=== PATIENT | female | born 1975 | race Caucasian/White ===

== ENCOUNTER 2017-05-31 16:23 | Inpatient (IN) | payer BC ==
[~2017-05-31] VITALS: Ht 152.4 cm; Wt 72.5 kg
[~2017-05-31 16:23] MED LIST: ALBU1AER9 INH; HYDR-5688 PO; SNG10 PO; TRAZ1TAB5 PO; ZLF/100 PO
[2017-05-31] MEDS ORDERED: ALBU18002 INH (16:38)
[2017-05-31] MEDS ORDERED: CYM/30 PO (16:38)
[2017-05-31 17:05] LABS: BASO % 0.3 %; BASO ABS # 0.03 K/uL (0-0.2); COMPLETE YES; EOS % 1.4 %; HEMATOCRIT 38.7 % (37-47); IG% 0.2 %; LYMPH % 26.7 %; LYMPH ABS # 2.81 K/uL (1.2-3.4); MEAN CELL VOLUME 91.7 fL (80-100); MEAN CORPUSCULAR HEMOGLOBIN 31.3 pg (25-34); MEAN CORPUSCULAR HGB CONC 34.1 g/dl (32-36); MEAN PLATELET VOLUME 9.6 fL (7.4-10.4); MONO % 10.3 %; NEUT % 61.1 %; PLATELET COUNT 235 K/uL (130-400); RED BLOOD COUNT 4.22 M/uL (4.2-5.4); WHITE BLOOD COUNT 10.53 K/uL (4.8-10.8)
[2017-05-31 17:13] LABS: ALT/SGPT 33 U/L (12-78); BLOOD UREA NITROGEN 12 mg/dl (7-18); BUN/CREATININE RATIO 12.8 (10-20); CALCIUM 8.5 mg/dl (8.5-10.1); CARBON DIOXIDE 27 mmol/L (21-32); CHLORIDE 108 mmol/L (98-107); GLUCOSE 90 mg/dl (70-99); POTASSIUM 3.7 mmol/L (3.5-5.1); SODIUM 141 mmol/L (136-145)
[2017-05-31 17:18] LABS: ALKALINE PHOSPHATASE 79 U/L (45-117); AST/SGOT 21 U/L (15-37)
[2017-05-31 17:25] LABS: PREG INTERNAL NEGATIVE QC NEG CLEAR BACKGROUND; PREG INTERNAL POSITIVE QC POS CONTROL LINE
[2017-05-31] MEDS ORDERED: OPTIRAY 320 IV PRN (17:45)
[2017-05-31] MEDS ORDERED: ALUMINUM/MAGNESIUM SUSP 30 ML UDC PO STA (17:51)
[2017-05-31] MEDS ORDERED: PANTOprazole INJ 40 MG in SYRINGE 0 ML IV ONE (18:00)
--- NOTE | 2017-05-31 18:03 | DIAGNOSTIC IMAGING REPORT ---
CHEST ONE VIEW PORTABLE CLINICAL HISTORY: Chest pain. COMPARISON STUDY: Chest radiograph April. FINDINGS: Lung volumes are normal. There is no pneumothorax. There is a trace left pleural effusion with mild left basilar opacity. Cardiac size is normal. Mediastinal contours are normal. There is no evidence of pulmonary edema. IMPRESSION: Trace left pleural effusion with mild left basilar opacity. Electronically signed by: Kenrick Roe M.D. 05/31/2017 6:02 PM Dictated Date/Time: 05/31/2017 5:59 PM
--- NOTE | 2017-05-31 18:28 | DIAGNOSTIC IMAGING REPORT ---
CT ANGIOGRAPHY OF THE CHEST, PULMONARY EMBOLUS PROTOCOL CLINICAL HISTORY: Left-sided chest pain. Elevated d-dimer. COMPARISON STUDY: Chest radiograph November 29, 2014 and May 31, 2017. TECHNIQUE: Following IV administration of 77 mL of Optiray-320, helical axial images of the chest were obtained utilizing the pulmonary embolus protocol. Maximal intensity projections and sagittal and coronal reformats were viewed on an independent 3D workstation. IV contrast was administered without complication. A dose lowering technique was utilized adhering to the principles of ALARA. CT DOSE: 267.09 mGy.cm FINDINGS: The size of the heart is normal. There is no pericardial effusion. There is no evidence of thoracic aortic dissection. A small left pleural effusion is noted. There is a 2.7 cm groundglass wedge-shaped lingular opacity shown on image 59 of 243. This suggests a pulmonary infarct. There is a probable subsegmental pulmonary embolus within an adjacent pulmonary artery shown image 65 of 243. No additional pulmonary emboli are identified. The bony thorax and upper abdomen are unremarkable. The gallbladder is surgically absent. Note is made of a 2.5 cm nodular density within the right breast at the 1:00 position. IMPRESSION: 1. Probable tiny subsegmental pulmonary embolus within the lingula with resultant pulmonary infarct and small left pleural effusion. No additional pulmonary emboli identified. 2. 2.5 cm nodular density within the right breast at approximately the 1:00 position. A follow-up nonemergent ultrasound and mammogram are recommended. This may reflect a fibroadenoma or breast tissue however imaging follow-up is recommended. Electronically signed by: Kenrick Roe M.D. 05/31/2017 6:27 PM Dictated Date/Time: 05/31/2017 6:12 PM
[2017-05-31] MEDS ORDERED: MoRPHine SULFATE 4 MG/ML 1 ML CARP\\VIAL IV STA (18:52)
[2017-05-31] MEDS ORDERED: HEPARIN 25000 UNIT/500 ML D5W ONE (19:12)
[2017-05-31] MEDS ORDERED: HEPARIN SOD (PORCINE) 1000 UNIT/ML 10 ML VIAL ONE (19:13)
[2017-05-31 19:47] LABS: PROTHROMBIN TIME (PATIENT) 10.5 SECONDS (9.0-12.0)
[2017-05-31] MEDS ORDERED: ONDANSETRON INJ 2 MG/ML 2 ML VIAL IV PRN (20:00)
[2017-05-31] MEDS ORDERED: MONTELUKAST SOD 10 MG TAB PO PRN (20:00)
[2017-05-31] MEDS ORDERED: LACTATED RINGER'S 1000ML 1,000 ML IV ONE (20:00)
[2017-05-31] MEDS ORDERED: TRAMADOL HCL 50 MG TAB PO PRN (20:00)
[2017-05-31] MEDS ORDERED: LORAZEPAM 2 MG/ML 1 ML VIAL IV PRN (20:00)
[2017-05-31] MEDS ORDERED: ACETAMINOPHEN 325 MG TAB PO PRN (20:00)
[2017-05-31 20:30] VITALS: BP 137/102; PULSE 92; TEMP 36.8; O2SAT 96; Ht 152.4 cm; Wt 72.5 kg
[2017-05-31] MEDS ORDERED: HEPARIN IV LOW DOSE NO BOLUS STA (21:04)
[2017-05-31] MEDS: TRAZODONE HCL 50 MG TAB PO SCH (21:10)
--- NOTE | 2017-05-31 22:19 | DIAGNOSTIC IMAGING REPORT ---
BILATERAL LOWER EXTREMITY VENOUS DOPPLER CLINICAL HISTORY: Pulmonary emboli. COMPARISON STUDY: Bilateral lower extremity venous Doppler November 29, 2014. TECHNIQUE: Sonography of the deep venous system of the bilateral lower extremities was performed. Compression and augmentation were evaluated. FINDINGS: The bilateral common femoral, superficial femoral and popliteal veins were compressible. Augmentation was normal. Flow was shown within the deep calf vessels. IMPRESSION: No evidence of deep venous thrombus within the bilateral lower extremities. Electronically signed by: Kenrick Roe M.D. 05/31/2017 10:18 PM Dictated Date/Time: 05/31/2017 10:17 PM
[2017-05-31] MEDS: MoRPHine SULFATE 4 MG/ML 1 ML CARP\\VIAL IV PRN (22:36)
[2017-05-31 23:59] VITALS: O2SAT 96
[2017-06-01] VITALS (8 sets, daily range): BP systolic 97–126; BP diastolic 68–87; PULSE 80–104; TEMP 36.6–36.8; O2SAT 95–98
--- NOTE | 2017-06-01 00:02 | HISTORY & PHYSICAL EXAMINATION ---
DATE OF ADMISSION: 05/31/2017 PRIMARY CARE PHYSICIAN: Dr. Flores. CHIEF COMPLAINT: Pleuritic left-sided chest pain. HISTORY OF PRESENT ILLNESS: History obtained from patient and records. Medical history significant for asthma, reflux, breast nodule as per records. Last night, patient noted pleuritic left-sided chest pain going to her neck, some shortness of breath, no cough symptoms. No leg swelling, no recent immobilization, no recent travel. No unusual weight loss. At the emergency room, CT chest showed probable tiny subsegmental pulmonary embolus within the lingula with resultant pulmonary infarct and small left pleural effusion, 2.5 cm nodular density within right breast at 1 o'clock. Follow up nonemergent ultrasound recommended. IV heparin started in the ER. MEDICAL HISTORY: As above. Outpatient breast ultrasound from March 2017 showed heterogeneously dense left breast, 6 mm nodular density at 8 o'clock, clustered micro cyst - probably benign, Followup mammogram and sonogram recommended in 6 months. SURGERIES: Urologic procedures, gynecologic procedures, cholecystectomy and dental surgery. HOME MEDICATIONS: Include ProAir, Cymbalta, montelukast, Desyrel. ALLERGIES: No known drug allergies. FAMILY HISTORY:breast cancer, no family history of blood clots PERSONAL AND SOCIAL HISTORY: Nonsmoker, no chronic intake of alcoholic beverages. [employer] employee. REVIEW OF SYSTEMS: As per HPI, all other ROS negative. PHYSICAL EXAMINATION: VITAL SIGNS: Blood pressure was noted to be 121/80, pulse rate 80, RR 18, temperature 36.6, sats 98RA GENERAL: Noted to be anxious, obese, no respiratory distress SKIN: Normal color. HEENT: [place] palpable conjunctivae. moist buccal mucosa. NECK: Short neck. LUNGS: Decreased breath sounds. HEART: Regular rate and rhythm. ABDOMEN: Soft. EXTREMITIES: Minimal lower extremity edema, no tenderness. NEUROLOGIC: No gross focality. LABORATORY AND IMAGING DATA: Hemoglobin 13, white cell count 10.5, platelets are 235. Sodium 140, potassium 3.7, chloride 105, CO2 22, BUN 12, creatinine 1, glucose 100. Troponin normal. CT chest as above. EKG as per my interpretation, rate 90, normal sinus rhythm, no ischemia. ASSESSMENT: 1. Acute pulmonary embolism, No obvious provoking factor for now. 2. Rule out lower extremity deep venous thrombosis as source. 3. Asthma, stable. 4. Breast nodule on the left likely benign from recent outpx ultrasound PLAN: PCU IV heparin for now. Defer discussion regarding choice of oral anticoagulant between the patient and AM provider. Lower extremity Dopplers to rule out DVT. Followup study for breast ultrasound outpatient before acr-dy-end-year. DVT prophylaxis, heparin. Full code. MTDD
[2017-06-01 05:10] LABS: BASO % 0.2 %; BASO ABS # 0.02 K/uL (0-0.2); COMPLETE YES; EOS % 2.2 %; HEMATOCRIT 38.1 % (37-47); IG% 0.1 %; LYMPH % 31.7 %; LYMPH ABS # 2.57 K/uL (1.2-3.4); MEAN CELL VOLUME 91.6 fL (80-100); MEAN CORPUSCULAR HEMOGLOBIN 30.5 pg (25-34); MEAN CORPUSCULAR HGB CONC 33.3 g/dl (32-36); MEAN PLATELET VOLUME 9.7 fL (7.4-10.4); MONO % 9.7 %; NEUT % 56.1 %; PLATELET COUNT 188 K/uL (130-400); RED BLOOD COUNT 4.16 M/uL (4.2-5.4); WHITE BLOOD COUNT 8.11 K/uL (4.8-10.8)
[2017-06-01 05:24] LABS: PARTIAL THROMBOPLASTIN RATIO 1.8
[2017-06-01] MEDS ORDERED: HEPARIN IV BOLUS 2,000 UNIT in SYRINGE 0 ML IV ONE (06:30)
[2017-06-01] MEDS: HEPARIN 25000 UNIT/ D5W 500 ML (PHARMACY PREPARED) IV PRN ×2 (06:32)
[2017-06-01] MEDS: DULOXETINE (CYMBALTA) 30 MG CAP PO SCH (07:40)
[2017-06-01] MEDS ORDERED: COUGH DROP (SUGAR FREE) LOZ 24 LOZ/1 BOX ONE (07:43)
[2017-06-01] MEDS ORDERED: PNEUMOCOCCAL ADMINISTRATION CHARGE ONE (08:00)
[2017-06-01] MEDS ORDERED: PNEUMOCOCCAL POLYSACCHARIDES 25 MCG/0.5 ML VIAL/SYR IM. ONE (08:00)
--- NOTE | 2017-06-01 09:03 | Progress Note ---
Subjective Date of Service: Jun 01, 2017. Subjective Pt evaluation today including: conversation w/ patient, physical exam, lab review, review of studies, review of inpatient medication list Saw/examined the patient in room 202 patient is doing okay - states that her breathing is fine does have occasional cough and develops some chest pressure after cough Review of Systems Constitutional: No fever, No chills Respiratory: + cough, No sputum, No wheezing, No shortness of breath, No dyspnea on exertion, No dyspnea at rest, No hemoptysis Cardiac: + chest pain (post-tussive pain), No edema, No palpitations Abdomen: No pain, No nausea, No vomiting, No diarrhea Musculoskeletal: No joint pain Female : No dysuria, No urinary frequency Psychiatric: No depression symptoms (controlled with medications) Heme: No abnormal bleeding/bruising Medications Current Inpatient Medications Medications (Trade) Dose Ordered Sig/Jerome Route Start Time Stop Time Status Last Admin Dose Admin Ioversol (Optiray 320) 100 ml UD PRN IV 05/31/17 17:45 06/04/17 17:44 Acetaminophen (Tylenol Tab) 650 mg Q4H PRN PO 05/31/17 20:00 06/30/17 19:59 06/01/17 06:35 650 MG Lactated Ringer's 1,000 ml @ 75 mls/hr [id number] ONCE IV 05/31/17 20:00 06/01/17 09:19 05/31/17 21:09 75 MLS/HR Tramadol HCl (Ultram Tab) not relieved by tylenol @ Q6H PRN PO 05/31/17 20:00 06/30/17 19:59 Morphine Sulfate (MoRPHine SULFATE INJ) 4 mg Q3H PRN IV 05/31/17 20:00 06/14/17 19:59 05/31/17 22:36 4 MG Lorazepam (Ativan Inj) 0.5 mg Q4H PRN IV 05/31/17 20:00 06/30/17 19:59 Ondansetron HCl (Zofran Inj) 4 mg Q6H PRN IV 05/31/17 20:00 06/30/17 19:59 Duloxetine HCl (Cymbalta Cap) 30 mg DAILY PO 06/01/17 09:00 07/01/17 08:59 06/01/17 07:40 30 MG Montelukast Sodium (Singulair Tab) 10 mg DAILY PRN PO 05/31/17 20:00 06/30/17 19:59 Trazodone HCl (Desyrel Tab) 50 mg HS PO 05/31/17 21:00 06/30/17 20:59 05/31/17 21:10 50 MG Heparin Sodium (Porcine) 01322 unit/Dextrose 500 ml @ 14 mls/hr Q24H PRN IV 05/31/17 22:00 06/30/17 21:59 06/01/17 06:32 14 MLS/HR Objective Vital Signs Date Time Temp Pulse Resp B/P (MAP) Pulse Ox O2 Delivery O2 Flow Rate FiO2 06/01/17 04:06 36.8 80 17 97/71 (80) 98 Room Air 06/01/17 04:00 96 Room Air 06/01/17 00:02 36.7 88 16 106/68 (81) 97 Room Air 05/31/17 23:59 96 Room Air 05/31/17 20:30 36.8 92 18 137/102 96 Room Air 05/31/17 19:53 82 135/93 96 Room Air 05/31/17 18:12 80 20 128/83 98 Room Air 05/31/17 17:35 83 18 121/80 96 Room Air 05/31/17 16:58 Room Air 05/31/17 16:39 94 05/31/17 16:35 Room Air 05/31/17 16:25 37.2 96 16 126/83 97 Room Air Physical Exam General Appearance: no apparent distress Respiratory/Chest: chest non-tender, lungs clear, normal breath sounds, no respiratory distress, no accessory muscle use Cardiovascular: regular rate, rhythm, no edema, no murmur Abdomen: normal bowel sounds, non tender, soft Extremities: normal range of motion, non-tender, normal inspection, no pedal edema, no calf tenderness Neurologic/Psychiatric: 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-XII 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 tested, no motor/sensory deficits, alert, normal mood/affect, oriented x 3 Skin: normal color Lymphatic: no adenopathy Laboratory Results Last 24 Hours Test 05/31/17 16:40 06/01/17 04:51 06/01/17 08:11 White Blood Count 10.53 K/uL 8.11 K/uL Red Blood Count 4.22 M/uL 4.16 M/uL Hemoglobin 13.2 g/dL 12.7 g/dL Hematocrit 38.7 % 38.1 % Mean Corpuscular Volume 91.7 fL 91.6 fL Mean Corpuscular Hemoglobin 31.3 pg 30.5 pg Mean Corpuscular Hemoglobin Concent 34.1 g/dl 33.3 g/dl Platelet Count 235 K/uL 188 K/uL Mean Platelet Volume 9.6 fL 9.7 fL Neutrophils (%) (Auto) 61.1 % 56.1 % Lymphocytes (%) (Auto) 26.7 % 31.7 % Monocytes (%) (Auto) 10.3 % 9.7 % Eosinophils (%) (Auto) 1.4 % 2.2 % Basophils (%) (Auto) 0.3 % 0.2 % Neutrophils # (Auto) 6.44 K/uL 4.54 K/uL Lymphocytes # (Auto) 2.81 K/uL 2.57 K/uL Monocytes # (Auto) 1.08 K/uL 0.79 K/uL Eosinophils # (Auto) 0.15 K/uL 0.18 K/uL Basophils # (Auto) 0.03 K/uL 0.02 K/uL RDW Standard Deviation 42.8 fL 43.1 fL RDW Coefficient of Variation 12.7 % 12.8 % Immature Granulocyte % (Auto) 0.2 % 0.1 % Immature Granulocyte # (Auto) 0.02 K/uL 0.01 K/uL Prothrombin Time 10.5 SECONDS Prothromb Time International Ratio 1.0 Activated Partial Thromboplast Time 25.0 SECONDS 45.9 SECONDS Partial Thromboplastin Ratio 1.0 1.8 D-Dimer 550 ug/L FEU Sodium Level 141 mmol/L Potassium Level 3.7 mmol/L Chloride Level 108 mmol/L Carbon Dioxide Level 27 mmol/L Anion Gap 6.0 mmol/L Blood Urea Nitrogen 12 mg/dl Creatinine 0.90 mg/dl Est Creatinine Clear Calc Drug Dose 73.1 ml/min Estimated GFR () 92.0 Estimated GFR (Non- 79.4 BUN/Creatinine Ratio 12.8 Random Glucose 90 mg/dl Calcium Level 8.5 mg/dl Magnesium Level 2.2 mg/dl Total Bilirubin 0.2 mg/dl Aspartate Amino Transf (AST/SGOT) 21 U/L Alanine Aminotransferase (ALT/SGPT) 33 U/L Alkaline Phosphatase 79 U/L Troponin I < 0.015 ng/ml < 0.015 ng/ml Total Protein 7.0 gm/dl Albumin 3.5 gm/dl Globulin 3.5 gm/dl Albumin/Globulin Ratio 1.0 Human Chorionic Gonadotropin, Qual NEG Assessment and Plan This is a 42 year old female with a PMH of asthma, allergic rhinitis, GERD, depression/anxiety presents with L sided chest pain, subsequently found to have PE Subsegmental PE CTA shows tiny subsegmental PE at Lingula also a 2.5cm nodular density of the R breast started on IV heparin hypercoag w/up ordered and pending lower extremity Doppler negative CM consulted to discuss cost of Xarelto as patient is leaning towards NOAC Asthma continue home medications no SOB noted DVT ppx IV heparin; see above FULL CODE
[2017-06-01] MEDS: MoRPHine SULFATE 4 MG/ML 1 ML CARP\\VIAL IV PRN ×3 (09:25→17:37)
[2017-06-01 13:21] LABS: PARTIAL THROMBOPLASTIN RATIO 1.6
[2017-06-01] MEDS ORDERED: RIVA1TAB7 PO (13:24)
[2017-06-01] MEDS ORDERED: HEPARIN IV BOLUS 4,000 UNIT in SYRINGE 0 ML IV ONE (14:15)
[2017-06-01 20:08] LABS: PARTIAL THROMBOPLASTIN RATIO 2.3
[2017-06-01] MEDS: TRAZODONE HCL 50 MG TAB PO SCH (20:45)
[2017-06-02 03:56] VITALS: BP 112/74; PULSE 79; TEMP 36.7; O2SAT 97
[2017-06-02] MEDS: HEPARIN 25000 UNIT/ D5W 500 ML (PHARMACY PREPARED) IV PRN ×2 (05:45)
[2017-06-02 06:08] LABS: BASO % 0.4 %; BASO ABS # 0.03 K/uL (0-0.2); COMPLETE YES; EOS % 2.2 %; HEMATOCRIT 36.6 % (37-47); IG% 0.1 %; LYMPH % 29.1 %; LYMPH ABS # 2.29 K/uL (1.2-3.4); MEAN CORPUSCULAR HEMOGLOBIN 30.8 pg (25-34); MEAN CORPUSCULAR HGB CONC 33.9 g/dl (32-36); MEAN PLATELET VOLUME 9.5 fL (7.4-10.4); MONO % 8.5 %; NEUT % 59.7 %; PLATELET COUNT 202 K/uL (130-400); RED BLOOD COUNT 4.02 M/uL (4.2-5.4); WHITE BLOOD COUNT 7.86 K/uL (4.8-10.8)
[2017-06-02 08:00] VITALS: BP 115/74; PULSE 57; TEMP 36.5; O2SAT 96
[2017-06-02] MEDS: DULOXETINE (CYMBALTA) 30 MG CAP PO SCH (08:42)
[2017-06-02] MEDS ORDERED: RIVAROXABAN TAB 15 MG TAB PO SCH (09:00)
--- NOTE | 2017-06-02 09:31 | Progress Note ---
Subjective Date of Service: Jun 02, 2017. Subjective Pt evaluation today including: conversation w/ patient, physical exam, lab review, review of studies, review of inpatient medication list Saw/examined the patient in room 202 She is doing well, no shortness of breath or chest pain, no cough, feeling better, eager to go home Review of Systems Constitutional: No fever, No chills, No weakness Respiratory: No cough, No sputum, No wheezing, No shortness of breath, No dyspnea on exertion, No dyspnea at rest, No hemoptysis Cardiac: No chest pain (improved), No edema, No palpitations Abdomen: No pain, No nausea, No vomiting, No diarrhea Heme: No abnormal bleeding/bruising Medications Current Inpatient Medications Medications (Trade) Dose Ordered Sig/Jerome Route Start Time Stop Time Status Last Admin Dose Admin Ioversol (Optiray 320) 100 ml UD PRN IV 05/31/17 17:45 06/04/17 17:44 Acetaminophen (Tylenol Tab) 650 mg Q4H PRN PO 05/31/17 20:00 06/30/17 19:59 06/01/17 06:35 650 MG Tramadol HCl (Ultram Tab) not relieved by tylenol @ Q6H PRN PO 05/31/17 20:00 06/30/17 19:59 Morphine Sulfate (MoRPHine SULFATE INJ) 4 mg Q3H PRN IV 05/31/17 20:00 06/14/17 19:59 06/01/17 17:37 4 MG Lorazepam (Ativan Inj) 0.5 mg Q4H PRN IV 05/31/17 20:00 06/30/17 19:59 Ondansetron HCl (Zofran Inj) 4 mg Q6H PRN IV 05/31/17 20:00 06/30/17 19:59 Duloxetine HCl (Cymbalta Cap) 30 mg DAILY PO 06/01/17 09:00 07/01/17 08:59 06/02/17 08:42 30 MG Montelukast Sodium (Singulair Tab) 10 mg DAILY PRN PO 05/31/17 20:00 06/30/17 19:59 Trazodone HCl (Desyrel Tab) 50 mg HS PO 05/31/17 21:00 06/30/17 20:59 06/01/17 20:45 50 MG Rivaroxaban (Xarelto Tab) 15 mg BID PO 06/02/17 09:00 07/02/17 08:59 06/02/17 08:42 15 MG Objective Vital Signs Date Time Temp Pulse Resp B/P (MAP) Pulse Ox O2 Delivery O2 Flow Rate FiO2 06/02/17 08:00 36.5 57 22 115/74 (88) 96 Room Air 06/02/17 04:00 Room Air 06/02/17 03:56 36.7 79 16 112/74 (87) 97 Room Air 06/02/17 00:00 Room Air 06/01/17 23:58 36.7 80 17 115/76 (89) 96 Room Air 06/01/17 20:04 36.6 81 18 120/69 (86) 96 Room Air 06/01/17 20:00 Room Air 06/01/17 16:00 Room Air 06/01/17 15:10 36.8 104 20 126/87 (100) 95 Room Air 06/01/17 12:00 Room Air 06/01/17 11:17 36.8 89 20 125/80 (95) 97 Room Air Physical Exam General Appearance: no apparent distress Respiratory/Chest: chest non-tender, lungs clear, normal breath sounds, no respiratory distress, no accessory muscle use Cardiovascular: regular rate, rhythm, no edema, no gallop, no JVD, no murmur Extremities: normal inspection, no pedal edema Neurologic/Psychiatric: no motor/sensory deficits, alert, normal mood/affect Laboratory Results Last 24 Hours Test 06/01/17 12:55 06/01/17 19:24 06/02/17 05:13 Activated Partial Thromboplast Time 40.4 SECONDS 59.7 SECONDS Partial Thromboplastin Ratio 1.6 2.3 White Blood Count 7.86 K/uL Red Blood Count 4.02 M/uL Hemoglobin 12.4 g/dL Hematocrit 36.6 % Mean Corpuscular Volume 91.0 fL Mean Corpuscular Hemoglobin 30.8 pg Mean Corpuscular Hemoglobin Concent 33.9 g/dl Platelet Count 202 K/uL Mean Platelet Volume 9.5 fL Neutrophils (%) (Auto) 59.7 % Lymphocytes (%) (Auto) 29.1 % Monocytes (%) (Auto) 8.5 % Eosinophils (%) (Auto) 2.2 % Basophils (%) (Auto) 0.4 % Neutrophils # (Auto) 4.69 K/uL Lymphocytes # (Auto) 2.29 K/uL Monocytes # (Auto) 0.67 K/uL Eosinophils # (Auto) 0.17 K/uL Basophils # (Auto) 0.03 K/uL RDW Standard Deviation 42.3 fL RDW Coefficient of Variation 12.6 % Immature Granulocyte % (Auto) 0.1 % Immature Granulocyte # (Auto) 0.01 K/uL Assessment and Plan This is a 42 year old female with a PMH of asthma, allergic rhinitis, GERD, depression/anxiety presents with L sided chest pain, subsequently found to have PE Subsegmental PE 06/02 patient is feeling well will stop IV heparin start Xarelto CM spoke with the pharmacy and patient, pt agreeable with cost 06/01 CTA shows tiny subsegmental PE at Lingula also a 2.5cm nodular density of the R breast started on IV heparin hypercoag w/up ordered and pending lower extremity Doppler negative CM consulted to discuss cost of Xarelto as patient is leaning towards NOAC Asthma continue home medications no SOB noted DVT ppx IV heparin; see above FULL CODE
--- NOTE | 2017-06-02 09:32 | Discharge Instructions ---
Discharge Instructions Date of Service Jun 02, 2017. Admission Reason for Admission: Pulmonary Embolism Discharge Discharge Diagnosis / Problem: Acute Subsegmental PE Discharge Goals Goal(s): Decrease discomfort, Improve function, Diagnostic testing, Therapeutic intervention Activity Recommendations Activity Limitations: resume your previous activity . Instructions / Follow-Up Instructions / Follow-Up Please follow-up with Dr. Flores on June 06 at 1:00PM * You will be started on Xarelto - you will be taking 15mg twice daily for the first 21 days, then take 20mg daily * Lab work pending in the hospital, can be followed up with by primary care physician * You will likely need to be on Xarelto for 3-6 months Current Hospital Diet Patient's current hospital diet: Regular Diet Discharge Diet Recommended Diet: Regular Diet Pending Studies Studies pending at discharge: yes List of pending studies: Hypercoag. workup pending Medical Emergencies . Who to Call and When: Medical Emergencies: If at any time you feel your situation is an emergency, please call 911 immediately. . Non-Emergent Contact Non-Emergency issues call your: Primary Care Provider . . "Provider Documentation" section prepared by Roel Cheung. . VTE Core Measure Inpt VTE Proph given/why not?: Other Anticoagulation (IV heparin)
--- NOTE | 2017-06-02 09:34 | Discharge Summary ---
Discharge Summary Date of Service Jun 02, 2017. Discharge Summary Admission Date: May 31, 2017 at 19:27 Discharge Date: Jun 02, 2017 Discharge Disposition: Home Principal Diagnosis: Acute Subsegmental PE of the Lingula Medication Reconciliation New Medications: Rivaroxaban (Xarelto Starter Pack 15 & 20 mg) 1 Tab Tab 1 PKT PO UD for 30 Days, #1 PKT Continued Medications: Albuterol Sulfate (Proair Respiclick) 108 Mcg/Act Aer 2 PUFFS INH DIRECTED PRN for ASTHMA ATTACK Duloxetine HCl (Cymbalta) 30 Mg Cap 30 MG PO DAILY for 30 Days, #30 CAP 2 Refills Montelukast Sod (Montelukast Sodium) 10 Mg Tab 10 MG PO DAILY PRN for ALLERGIC REACTION, #90 Trazodone Hcl (Desyrel) 50 Mg Tab 50 MG PO HS, #180 Admission Information Physical Exam (per Admitting): DICTATED BY: Nicho Mckeon M.D. *NOTICE TO RECEIVING CONSTITUTION PARTY/AGENCY This information is strictly Confidential and protected under [place] law. [place] law prohibits you from making any further disclosure of this information unless further disclosure is expressly permitted by the written consent of the person to whom it pertains or is authorized by law. A general authorization for the release of medical or other information is not sufficient for this purpose. Hospital accepts no responsibility if the information is made available to any other person, INCLUDING THE PATIENT. DATE OF ADMISSION: 05/31/2017 PRIMARY CARE PHYSICIAN: Dr. Flores. CHIEF COMPLAINT: Pleuritic left-sided chest pain. HISTORY OF PRESENT ILLNESS: History obtained from patient and records. Medical history significant for asthma, reflux, breast nodule as per records. Last night, patient noted pleuritic left-sided chest pain going to her neck, some shortness of breath, no cough symptoms. No leg swelling, no recent immobilization, no recent travel. No unusual weight loss. At the emergency room, CT chest showed probable tiny subsegmental pulmonary embolus within the lingula with resultant pulmonary infarct and small left pleural effusion, 2.5 cm nodular density within right breast at 1 o'clock. Follow up nonemergent ultrasound recommended. IV heparin started in the ER. MEDICAL HISTORY: As above. Outpatient breast ultrasound from March 2017 showed heterogeneously dense left breast, 6 mm nodular density at 8 o'clock, clustered micro cyst - probably benign, Followup mammogram and sonogram recommended in 6 months. SURGERIES: Urologic procedures, gynecologic procedures, cholecystectomy and dental surgery. HOME MEDICATIONS: Include ProAir, Cymbalta, montelukast, Desyrel. ALLERGIES: No known drug allergies. FAMILY HISTORY:breast cancer, no family history of blood clots PERSONAL AND SOCIAL HISTORY: Nonsmoker, no chronic intake of alcoholic beverages. [employer] employee. REVIEW OF SYSTEMS: As per HPI, all other ROS negative. PHYSICAL EXAMINATION: VITAL SIGNS: Blood pressure was noted to be 121/80, pulse rate 80, RR 18, temperature 36.6, sats 98RA GENERAL: Noted to be anxious, obese, no respiratory distress SKIN: Normal color. HEENT: [place] palpable conjunctivae. moist buccal mucosa. NECK: Short neck. LUNGS: Decreased breath sounds. HEART: Regular rate and rhythm. ABDOMEN: Soft. EXTREMITIES: Minimal lower extremity edema, no tenderness. NEUROLOGIC: No gross focality. LABORATORY AND IMAGING DATA: Hemoglobin 13, white cell count 10.5, platelets are 235. Sodium 140, potassium 3.7, chloride 105, CO2 22, BUN 12, creatinine 1, glucose 100. Troponin normal. CT chest as above. EKG as per my interpretation, rate 90, normal sinus rhythm, no ischemia. ASSESSMENT: 1. Acute pulmonary embolism, No obvious provoking factor for now. 2. Rule out lower extremity deep venous thrombosis as source. 3. Asthma, stable. 4. Breast nodule on the left likely benign from recent outpx ultrasound PLAN: PCU IV heparin for now. Defer discussion regarding choice of oral anticoagulant between the patient and AM provider. Lower extremity Dopplers to rule out DVT. Followup study for breast ultrasound outpatient before [id number]. DVT prophylaxis, heparin. Full code. Hospital Course This is a 42 year old female with a PMH of asthma, allergic rhinitis, GERD, depression/anxiety presents with L sided chest pain, subsequently found to have PE Subsegmental PE 06/02 patient is feeling well will stop IV heparin start Xarelto CM spoke with the pharmacy and patient, pt agreeable with cost 06/01 CTA shows tiny subsegmental PE at Lingula also a 2.5cm nodular density of the R breast started on IV heparin hypercoag w/up ordered and pending lower extremity Doppler negative CM consulted to discuss cost of Xarelto as patient is leaning towards NOAC Asthma continue home medications no SOB noted DVT ppx IV heparin; see above FULL CODE Total time spent on discharge = 40 minutes This includes examination of the patient, discharge planning, medication reconciliation, and communication with other providers. Discharge Instructions Please follow-up with Dr. Flores on June 06 at 1:00PM * You will be started on Xarelto - you will be taking 15mg twice daily for the first 21 days, then take 20mg daily * Lab work pending in the hospital, can be followed up with by primary care physician * You will likely need to be on Xarelto for 3-6 months Additional Copies To Reji Flores M.D.
[2017-06-02 11:08] VITALS: BP 120/85; PULSE 88; TEMP 36.8; O2SAT 97
[2017-06-05 13:51] LABS: B2 GLYCOPROTEIN IGA <9 SAU (<=20); B2 GLYCOPROTEIN IGG <9 SGU (<=20); B2 GLYCOPROTEIN IGM <9 SMU (<=20); LUPUS ANTICOAGULANT** TC36573X Negative (Negative); PROTEIN C ACTIVITY** TC 1777X 86 % (70-180); PROTEIN S ACT(FUNCT)**1779X 87 % (60-140)
--- NOTE | 2017-06-11 18:22 | EMERGENCY ROOM VISIT NOTE ---
History Report prepared by Madelaine: Christiana Crandall Under the Supervision of: Dr. Loreto Leone D.O. First contact with patient: 16:29 Chief Complaint: CHEST PAIN Stated Complaint: LF SIDE PAIN UNDER BREAST/CHEST/NECK/SHOULDER History of Present Illness The patient is a 42 year old female who presents to the Emergency Room with complaints of constant severe chest pain starting last night. The patient states that the pain is under her left breast and shoots into her shoulder and neck. She reports that there is a pain in her arm that is a burning sensation. She states that deep breaths worsen the pain. The patient notes that she was kept up last night from the pain. She denies a change in activity or ever having this before. She notes that she does have a lump in her breast. The patient complains of shortness of breath, diarrhea 3 times today, vomiting once a day after she eats, and swelling in both legs that have passed. The patient denies a cough, fever, chills, recent travel, hematochezia, chance of , change in medications, loss of consciousness, weakness, bloating, and dizziness. She notes a history of a cholecystectomy, reflux disease, and a hiatal hernia. She states her mother has a cardiac history, but she does not. She notes she takes Cymbalta. Source of History: patient Onset: last night Position: chest Symptom Intensity: severe Quality: burning Timing: constant Modifying Factors (Worsening): breathing (deep) Associated Symptoms: + SOB, + vomiting, + diarrhea, No LOC, No fevers, No chills, No cough, No hematochezia, No weakness Note: The patient complains of past leg swelling. The patient denies recent travel, chance of , change in medications, bloating, and dizziness. Review of Systems Pt denies headache, change in vision, fevers, chest pain, shortness of breath, nausea, vomiting, diarrhea, pain with urination, and melena. Past Medical & Surgical Medical Problems: (1) Anxiety (2) Asthma, Unspecified (3) Pulmonary embolism Surgical Problems: (1) Hx of cholecystectomy Family History Diabetes mellitus Heart disease Social History Smoking Status: Never Smoker Alcohol Use: none Drug Use: none Marital Status: Housing Status: lives with family Occupation Status: employed Current/Historical Medications Scheduled Duloxetine HCl (Cymbalta), 30 MG PO DAILY Rivaroxaban (Xarelto Starter Pack 15 & 20 mg), 1 PKT PO UD Trazodone Hcl (Desyrel), 50 MG PO HS Scheduled PRN Albuterol Sulfate (Proair Respiclick), 2 PUFFS INH DIRECTED PRN for ASTHMA ATTACK Montelukast Sod (Montelukast Sodium), 10 MG PO DAILY PRN for ALLERGIC REACTION Allergies Coded Allergies: No Known Allergies (Unverified , 05/31/17) Physical Exam Vital Signs Date Time Temp Pulse Resp B/P (MAP) Pulse Ox O2 Delivery O2 Flow Rate FiO2 05/31/17 18:12 80 20 128/83 98 Room Air 05/31/17 17:35 83 18 121/80 96 Room Air 05/31/17 16:58 Room Air 05/31/17 16:39 94 05/31/17 16:35 Room Air 05/31/17 16:25 37.2 96 16 126/83 97 Room Air Physical Exam GENERAL: alert, mildly anxious appearing, well nourished, no distress, non- toxic EYE EXAM: normal conjunctiva, PERRL and EOM's grossly intact OROPHARYNX: no exudate, no erythema, lips, buccal mucosa, and tongue normal and mucous membranes are moist NECK: supple, no nuchal rigidity, no adenopathy, non-tender, no reproducible pain to shoulder or neck LUNGS: Clear to auscultation. Normal chest wall mechanics HEART: no murmurs, S1 normal and S2 normal, no reproducible pain to superior chest wall ABDOMEN: abdomen soft, non-tender, normo-active bowel sounds, no masses, no rebound or guarding. Inferior to left breast along anterior ribs is a small area of pain with palpation. BACK: Back is symmetrical on inspection and there is no deformity, no midline tenderness, no CVA tenderness. SKIN: no rashes and no bruising UPPER EXTREMITIES: upper extremities are grossly normal. LOWER EXTREMITIES: No pitting edema. NEURO EXAM: Normal sensorium, cranial nerves II-XII grossly intact, normal speech, no gross weakness of arms, no gross weakness of legs. Medical Decision & Procedures ER Provider Diagnostic Interpretation: Radiology results have been interpreted by the radiologist and reviewed by me. CHEST ONE VIEW PORTABLE CLINICAL HISTORY: Chest pain. COMPARISON STUDY: Chest radiograph April. FINDINGS: Lung volumes are normal. There is no pneumothorax. There is a trace left pleural effusion with mild left basilar opacity. Cardiac size is normal. Mediastinal contours are normal. There is no evidence of pulmonary edema. IMPRESSION: Trace left pleural effusion with mild left basilar opacity. Electronically signed by: Kenrick Roe M.D. 05/31/2017 6:02 PM Dictated Date/Time: 05/31/2017 5:[address] ANGIOGRAPHY OF THE CHEST, PULMONARY EMBOLUS PROTOCOL CLINICAL HISTORY: Left-sided chest pain. Elevated d-dimer. COMPARISON STUDY: Chest radiograph November 29, 2014 and May 31, 2017. TECHNIQUE: Following IV administration of 77 mL of Optiray-320, helical axial images of the chest were obtained utilizing the pulmonary embolus protocol. Maximal intensity projections and sagittal and coronal reformats were viewed on an independent 3D workstation. IV contrast was administered without complication. A dose lowering technique was utilized adhering to the principles of ALARA. CT DOSE: 267.09 mGy.cm FINDINGS: The size of the heart is normal. There is no pericardial effusion. There is no evidence of thoracic aortic dissection. A small left pleural effusion is noted. There is a 2.7 cm groundglass wedge-shaped lingular opacity shown on image 59 of 243. This suggests a pulmonary infarct. There is a probable subsegmental pulmonary embolus within an adjacent pulmonary artery shown image 65 of 243. No additional pulmonary emboli are identified. The bony thorax and upper abdomen are unremarkable. The gallbladder is surgically absent. Note is made of a 2.5 cm nodular density within the right breast at the 1:00 position. IMPRESSION: 1. Probable tiny subsegmental pulmonary embolus within the lingula with resultant pulmonary infarct and small left pleural effusion. No additional pulmonary emboli identified. 2. 2.5 cm nodular density within the right breast at approximately the 1:00 position. A follow-up nonemergent ultrasound and mammogram are recommended. This may reflect a fibroadenoma or breast tissue however imaging follow-up is recommended. Electronically signed by: Kenrick Roe M.D. 05/31/2017 6:27 PM Dictated Date/Time: 05/31/2017 6:12 PM Laboratory Results 05/31/17 16:40 Test 05/31/17 16:40 Prothrombin Time 10.5 SECONDS (9.0-12.0) Prothromb Time International Ratio 1.0 (0.9-1.1) D-Dimer 550 ug/L FEU (0-500) Anion Gap 6.0 mmol/L (3-11) Est Creatinine Clear Calc Drug Dose 73.1 ml/min Estimated GFR () 92.0 Estimated GFR (Non- 79.4 BUN/Creatinine Ratio 12.8 (10-20) Calcium Level 8.5 mg/dl (8.5-10.1) Magnesium Level 2.2 mg/dl (1.8-2.4) Total Bilirubin 0.2 mg/dl (0.2-1) Aspartate Amino Transf (AST/SGOT) 21 U/L (15-37) Alanine Aminotransferase (ALT/SGPT) 33 U/L (12-78) Alkaline Phosphatase 79 U/L (45-117) Total Protein 7.0 gm/dl (6.4-8.2) Albumin 3.5 gm/dl (3.4-5.0) Globulin 3.5 gm/dl (2.5-4.0) Albumin/Globulin Ratio 1.0 (0.9-2) Human Chorionic Gonadotropin, Qual NEG (NEG) Laboratory results per my review. Medications Administered Medications (Trade) Dose Ordered Sig/Jerome Route Start Time Stop Time Status Last Admin Dose Admin Al Hydroxide/Mg Hydroxide (Maalox Susp) 30 ml NOW STAT PO 05/31/17 17:51 05/31/17 17:52 DC 05/31/17 18:07 30 ML Pantoprazole Sodium 40 mg/ Syringe 10 ml @ 5 mls/min NOW ONCE IV 05/31/17 18:00 05/31/17 18:02 DC 05/31/17 18:07 5 MLS/MIN Heparin Sodium/ Dextrose 1 ea NOW STAT N/A 05/31/17 18:51 05/31/17 18:52 DC 05/31/17 19:17 1 EA Morphine Sulfate (MoRPHine SULFATE INJ) 4 mg NOW STAT IV 05/31/17 18:52 05/31/17 18:53 DC 05/31/17 19:16 4 MG Heparin Sodium/ Dextrose (Heparin 25,000 Unit/500ml D5W) 25,000 unit STK-MED ONCE .ROUTE 05/31/17 19:12 05/31/17 19:13 DC 05/31/17 19:17 25,000 UNIT Heparin Sodium (Porcine) (Heparin Iv Bolus) 10,000 unit STK-MED ONCE .ROUTE 05/31/17 19:13 05/31/17 19:14 DC 05/31/17 19:18 4,000 UNIT ECG Indication: chest pain Rate (beats per minute): 91 Rhythm: sinus rhythm Findings: T-wave inversion (Lead 3), no acute ischemic change, other (normal axis, normal intervals) ED Course 1637: The patient was evaluated in room A11B. A complete history and physical exam was performed. 1751: Ordered Maalox Susp 30 ml PO. 1800: Ordered Pantoprazole Sodium 40mg/ Syringe 10 ml @ 5 mls/min IV. 184: I reevaluated the patient and she is doing okay. I updated her on her test results. The patient states she is good iwth the plan for further treatment. She states that there is no family history of clotting. She denies the use of control or hormone replacement therapy. 1849: I reviewed the patient's case with Dr. Cheung. Dr. Cheung will evaluate the patient for further management. 185: Ordered Heparin Sodium/ Dextrose 1 ea N/A. Medical Decision Differential diagnosis: Etiologies such as cardiac ischemia, aortic dissection, pulmonary embolism, pneumonia, pneumothorax, musculoskeletal, infections, pericarditis, myocarditis , esophageal rupture, gastrointestinal, as well as others were entertained. She with no known risk factors for PE. Given PE and subsequent infarction, patient admitted for additional evaluation and anticoagulation. Discussed with hospitalist. Patient aware of all results. No other evidence of vascular or infectious etiology. Patient's vital signs here stable, pain controlled with medications, not hypoxic on room air. No evidence of right heart strain, no evidence of massive or submassive PE. Medication Reconcilliation Current Medication List: was personally reviewed by me Blood Pressure Screening Patient's blood pressure: Elevated blood pressure Blood pressure disposition: Elevated BP felt to be situational Consults Time Called: 1845 Consulting Physician: Dr. Cheung Returned Call: 1849 I reviewed the patient's case with Dr. Cheung. Dr. Cheung will evaluate the patient for further management. Impression Primary Impression: Chest pain Additional Impressions: Pulmonary embolism Pulmonary infarct Scribe Attestation The scribe's documentation has been prepared under my direction and personally reviewed by me in its entirety. I confirm that the note above accurately reflects all work, treatment, procedures, and medical decision making performed by me. Departure Information Dispostion Being Evaluated By Hospitalist Prescriptions Rivaroxaban (Xarelto Starter Pack 15 & 20 mg) 1 Tab Tab 1 PKT PO UD for 30 Days, #1 PKT Prov: Roel Cheung, 06/01/17 Referrals Reji Flores M.D. (PCP) Patient Instructions My [facility] Problem Qualifiers Primary Impression: Chest pain Chest pain type: unspecified Qualified Codes: R07.9 - Chest pain, unspecified Additional Impressions: Pulmonary embolism Pulmonary embolism type: other Chronicity: acute Acute cor pulmonale presence: without acute cor pulmonale Qualified Codes: I26.99 - Other pulmonary embolism without acute cor pulmonale
== END 2017-06-02 10:50 | disposition home or self-care (01) | DRG 176 ==
LOC: C.EDB 16:24 → C.2E 19:27 → ENRESERV 20:00
PROVIDERS: ADMIT Family Medicine; ATTEND Family Medicine
DX: I26.99 Other pulmonary embolism without acute cor pulmonale (principal); J45.909 Unspecified asthma, uncomplicated; K21.9 Gastro-esophageal reflux disease without esophagitis

== ENCOUNTER 2022-09-25 09:26 | Observation (INO) ==
[2022-09-25] MEDS ORDERED: SODIUM CHLORIDE 0.9% 500 ML IV STA (10:04)
[2022-09-25] MEDS ORDERED: ONDANSETRON INJ 2 MG/ML 2 ML VIAL ONE (10:15)
[2022-09-25 10:30] LABS: Basophils # (auto) 0.04 K/uL (0-0.2); Basophils % (auto) 0.3 %; Hematocrit (blood only) 39.7 % (34.1-44.9); Immature Granulocytes # (auto) 0.03 K/uL (0.00-0.02); Immature Granulocytes % (auto) 0.2 %; Lymphocytes # (auto) 1.81 K/uL (1.2-3.4); Mean Corpuscular Hemoglobin 30.6 pg (25.0-34.0); Mean Corpuscular Hgb Conc 35.3 g/dL (32.0-36.0); Mean Corpuscular Volume 86.9 fL (80.0-100.0); Mean Platelet Volume 9.6 fL (9.4-12.3); Monocytes # (auto) 0.53 K/uL (0.24-0.82); Monocytes % (auto) 4.1 %; Neutrophils # (auto) 10.54 K/uL (1.4-6.5); Neutrophils % (auto) 81.4 %; Platelet Count 269 K/uL (130-400); RDW Coefficient of Variation 12.4 % (11.5-14.5); RDW Standard Deviation 39.4 fL (36.4-46.3); Red Blood Count 4.57 M/uL (3.93-5.22); White Blood Count 12.95 K/ul (4.8-10.8)
[2022-09-25 10:50] LABS: Alanine Aminotransferase 28 U/L (7-52); Albumin Globulin Ratio 1.4 (0.9-2); Albumin Level 4.3 gm/dl (3.4-5.0); Alkaline Phosphatase 59 U/L (34-104); Anion Gap 10 (3-11); Aspartate Aminotransferase 29 U/L (13-39); BUN Creatinine Ratio 15.6 (10-20); Bilirubin,Total 0.5 mg/dl (0.2-1.0); Blood Urea Nitrogen 12 mg/dl (6-23); Calcium 9.3 mg/dl (8.5-10.1); Carbon Dioxide 23 mmol/L (21-32); Chloride 104 mmol/L (98-107); Est GFR (African American) 107.3 ml/min; Est GFR (Non-African American) 92.6 ml/min; Glucose 130 mg/dl (70-99(Fasting)); Lipase 9 U/L (11-82); Potassium 3.9 mmol/L (3.5-5.1); Sodium 137 mmol/L (136-145); Total Protein 7.3 gm/dl (6.0-8.3)
[2022-09-25] MEDS ORDERED: SODIUM CHLORIDE 0.9% 1000ML 1,000 ML IV ONE (10:58)
[2022-09-25] MEDS ORDERED: ONDANSETRON INJ 2 MG/ML 2 ML VIAL IV STA ×2 (10:58→14:25)
[2022-09-25] MEDS ORDERED: KETOROLAC TROMETHAMINE 15 MG/ML VIAL IV ONE (10:58)
[2022-09-25] MEDS: HYDROmorphone INJ 0.5 MG/0.5 ML SYR IV PRN ×2 (11:13→13:53)
[2022-09-25] MEDS ORDERED: OPTIRAY 350 100ml IV ONE (13:25)
--- NOTE | 2022-09-25 14:12 | CT Scan Report ---
CT OF THE ABDOMEN AND PELVIS WITH CONTRAST CLINICAL HISTORY: increased RLQ pain, WBC. CT yesterday neg, iv only COMPARISON STUDY: CT of the abdomen and pelvis and pelvic ultrasound September 24, 2022. TECHNIQUE: Following IV administration of 86 mL of Optiray, axial images of the abdomen and pelvis we re obtained from the lung bases to the proximal femurs. Images were reviewed in the axial, sagittal, and coronal planes. IV contrast was administered without complication. Automated exposure control wa s utilized for the study. A dose lowering technique was utilized adhering to the principles of ALARA . Oral contrast was administered. CT DOSE: 557.68 mGy.cm FINDINGS: Lung bases are unremarkable. No pneumatosis, free air or portal venous gas is present. Ther e is no biliary ductal dilatation status post cholecystectomy. The spleen, adrenal glands and pancrea s are unremarkable. There is no peripancreatic stranding. There is no hydronephrosis. Subcentimeter r ight renal lesion is too small to characterize but is probably benign. There is no hydronephrosis. Ma monty vasculature is patent. The caliber and wall thickness of small and large bowel are normal. Coloni c diverticulosis is noted without evidence for acute diverticulitis. The appendix is diminutive. Ther e is no evidence for acute appendicitis. Low-attenuation left adnexal lesions measure up to 4 cm. The se are similar to prior CT and ultrasound. IMPRESSION: 1. No acute process within the abdomen or pelvis. 2. No bowel obstruction. Normal appendix. No bowel wall thickening. 3. Colonic diverticulosis without evidence for acute diverticulitis. 4. Two low-attenuation left adnexal lesions which likely reflect hemorrhagic cysts when correlating w ith ultrasound September 24, 2022. A follow-up pelvic ultrasound in 2 months to ensure resolution is r ecommended. ACT 112: Negative or not required by law. Electronically signed by: Kenrick Roe M.D. 09/25/2022 2:11 PM
[2022-09-25] MEDS ORDERED: AMPICILLIN/SULBACTAM SOD 3,000 MG in 0.9 % SODIUM CHLORIDE 100 ML IV STA (14:25)
--- NOTE | 2022-09-25 14:53 | Emergency Department Note ---
Impression & Plan Right lower quadrant abdominal pain, Nausea & vomiting, Leukocytosis, Complex cyst of left ovary ED Provider Note INFORMANT: Patient ED PROVIDER(S): Tesfaye Branch MD CHIEF COMPLAINT: Abdominal pain, right lower quadrant PLAN: Disposition: Admitted Condition: Good Outpatient prescription management: none Referral: None MEDICAL DECISION MAKING: Patient presented back to emergency department with right lower quadrant abdominal pain. Unfortunately she was unable to take any the pain medication she was prescribed yesterday because of the vomiting.. She had no left lower quadrant tenderness. Review of the record yesterday indicated her CT scan did not show any abnormalities in the right lower quadrant. This was IV contrast only. The patient had an ultrasound yesterday that did show a complex nature to the left ovarian cyst however the patient has no pain in that area. She underwent a second work-up today and she had a leukocytosis on CBC. Her chemistry panel was unremarkable. Urinalysis is unremarkable as is . The patient received IV Zofran, normal saline and Dilaudid. On reassessment she was feeling better. She underwent preparation for CT scan with IV and oral contrast. She was given additional fluids for hydration. The patient underwent CT scan. There was no clear evidence of appendicitis. Appendix appears to be diminutive. Moderate diverticulosis was noted without obvious CT evidence of diverticulitis or perforation. The ovarian cyst on the left side was noted again. No other abnormalities were noted. The patient was reassessed and was becoming more nauseated again. She and I discussed empiric treatment for the possibility of diverticulitis not seen on the CT as she does have tenderness in this area and has a leukocytosis developing. She was given Zofran but vomited again. She received a dose of IV Unasyn and Reglan with Benadryl was ordered. In light of her continued pain and intractable nausea and vomiting further ma nagement was felt to be appropriate. Consultation was made with Dr. Axel Lopez of the [facility] service. Patient was evaluated in the ER for further management. They did ask for a surgical consultation as well. I did consult with Marita Leyva PA-C who was working with Dr. Collado. They will evaluate the patient and discussed with internal medicine. Triage Nursing notes reviewed and agree them. Vital Signs: reviewed and remarkable for mild hypertension and borderline tachycardia Differential diagnosis: Appendicitis, ovarian cyst, ovarian torsion, ectopic , TOA, PID, infections, diverticulitis, UTI, obstruction, mesenteric ischemia, aortic pathology, inflammatory bowel disease, renal colic, PUD, pancreatitis, biliary pathology, hernia, volvulus, constipation, as well as other pathologies. Diagnostics interpreted by me: ECG: none Cardiac Monitoring: Cardiac monitoring ordered by me: The patient was placed on continuous cardiac monitoring and observed. It revealed a normal sinus rhythm at 96 beats per minute without ectopy or evidence of dysrhythmia. Imaging studies: CT scan of the abdomen pelvis with IV and oral contrast reveals the left ovarian cyst. Appendix appears diminutive. There is no acute abnormality identified in the right lower quadrant. There is moderate diverticulosis present however. HPI: The patient is a 47year old female who presents to the Emergency Room with complaints of right lower quadrant abdominal pain. This started yesterday and is worsening today. The patient also notes the following associated symptoms, nausea and vomiting. The patient has been prescribed oxycodone for relieving factors. Current pain is rated as 10/10. Patient was in the emergency room yesterday and had a work-up performed. Laboratory testing was unremarkable. Urinalysis negative. The patient had a CT scan performed which revealed a left ovarian cyst but no abnormalities in the right lower quadrant. Patient was prescribed oxycodone. Unfortunately she became nauseated and vomited today and was unable to utilize the pain medication. Pt denies LOC, headache, fevers, chills, diaphoresis, visual changes, neck pain, chest pain, breathing difficulties, vaginal bleeding, vaginal fluid leaking back pain, melena, hematochezia, urinary symptoms, numbness, weakness, lymphadenopathy, rash, or other complaints. ROS: See above HPI for pertinent positives & negatives. A total of 10 systems reviewed and were otherwise negative. PAST MEDICAL HISTORY:See Below , GERD PAST SURGICAL HISTORY:See Below, right oophorectomy and hysterectomy FAMILY HISTORY:See Below SOCIAL HISTORY:See Below, non-smoker HOME MEDICATIONS:See Below ALLERGIES:See Below VITALS:See Below PHYSICAL EXAMINATION: GENERAL: Awake, alert, uncomfortable-appearing, in no distress HENT: Normocephalic, atraumatic. Oropharynx unremarkable. EYES: Normal conjunctiva. Sclera non-icteric. NECK: Inspection normal. Non-tender. Supple. No nuchal rigidity. FROM. No masses. RESPIRATORY: Clear to auscultation. No wheezes. No rales. Normal respiratory effort. CARDIAC: Normal rate. Normal rhythm. No murmurs. No rubs. Extremities warm and well perfused. Pulses equal. No JVD. GI: Soft, non-distended. Right lower quadrant tenderness to palpation. No left lower quadrant tenderness to palpation. No rebound generally. There is some mild guarding in the right lower quadrant. No masses. RECTAL: Deferred. MUSCULOSKELETAL: Atraumatic. Chest examination reveals no tenderness. The back is symmetrical on inspection without obvious abnormality. There is no CVA tenderness to palpation. No joint edema. LOWER EXTREMITIES: Calves are equal size bilaterally and non-tender. No edema. No discoloration. NEURO: Normal sensorium. No sensory or motor deficits noted. SKIN: No rash or jaundice noted. Tesfaye Branch MD Past Med/Surg History Medical History Abnormal mammogram of left breast GERD (gastroesophageal reflux disease) History of pulmonary embolism after travel (3 years ago)- previous AC Migraine Palpitations h/o (was previously treated with BB but no longer taking) -- follows with Dr. Lackey Pleural effusion, left (~06/26/22) Ventral hernia Surgical History H/O lithotripsy ESWL 2017 History of cholecystectomy History of colonoscopy History of D&C History of esophagogastroduodenoscopy (EGD) History of hysterectomy with unilateral oophorectomy RIGHT OOPHORECTOMY History of tooth extraction Nausea and vomiting after administration of anesthetic agent S/P cystoscopy S/P excision of lipoma S/P hernia surgery 10/2020 and 04/2021 S/P repair of ventral hernia x 2. Most recent 06/13/[address] [facility] [address] Agarwal Family History Father Family history of diabetes mellitus Myocardial infarction Mother Family history of diabetes mellitus Hypertension Other No family history of adverse response to anesthesia Denies family history of Ovarian cancer Prostate cancer Breast cancer Colorectal cancer Social History Smoking Status: Never smoker Second Hand Exposure: No; Hx Alcohol Use: No Hx Substance Use: No Preferred Language: Ethiopian Communication Ability: Effective Visual Impairment: No Limitations Hearing Ability: Normal [place] Required: No Beliefs That Will Affect Care: None marital status: Current Living Situation: Spouse current occupational status: employed 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 Feels Safe at Home: Yes Childhood Exposure to Second-Hand Smoke: No Dental Care, Regularly: Yes Physical Activity Frequency: 1-2 Times per Week Seatbelt Use: always Sunscreen Use: Yes Assistive Devices: Contacts Allergies Allergies Allergy/AdvReac Type Severity Reaction Status Date / Time No Known Allergies Allergy Verified 09/25/22 15:40 Home Meds Home Medications Medication Instructions Recorded Confirmed multivitamin 1 tab PO QDL 11/14/20 09/25/22 Previous Rx's Medication Instructions Recorded montelukast 10 mg tablet 10 mg PO DAILY #90 tabs 02/01/22 pantoprazole 40 mg tablet,delayed 40 mg PO QAM #90 tabs 05/27/22 release oxycodone 5 mg tablet 5 mg PO Q6H PRN pain #10 tabs 09/24/22 Results & Data (ED) Vital Signs Vital Signs - 24 hr 09/25/22 09:51 09/25/22 10:06 09/25/22 13:55 Temperature 36.8 C Temperature Source Temporal Artery Scan Pulse Rate 108 H Pulse Rate [Apical] 107 H 96 H Respiratory Rate 18 21 20 Blood Pressure [Right Arm] 136/101 H Blood Pressure Mean [Right Arm] 112 Pulse Oximetry 97 98 99 Oxygen Delivery Method Room Air Room Air Sepsis New/Unexplained Change in Mental Status No Sepsis Action Taken by Nursing No Action Required Laboratory Data Result diagrams: 09/25/22 10:18 09/25/22 10:18 Lab Results 09/25/22 09/25/22 09/25/22 Range/Units 10:18 10:18 10:18 WBC 12.95 H (4.8-10.8) K/ul RBC 4.57 (3.93-5.22) M/uL Hgb 14.0 (12.0-16.0) g/dl Hct 39.7 (34.1-44.9) % MCV 86.9 (80.0-100.0) fL MCH 30.6 (25.0-34.0) pg MCHC 35.3 (32.0-36.0) g/dL RDW Std Deviation 39.4 (36.4-46.3) fL RDW Coeff of Cynthia 12.4 (11.5-14.5) % Plt Count 269 (130-400) K/uL MPV 9.6 (9.4-12.3) fL Immature Gran % (Auto) 0.2 % Neut % (Auto) 81.4 % Lymph % (Auto) 14.0 % Sumner % (Auto) 4.1 % Eos % (Auto) 0.0 % Baso % (Auto) 0.3 % Neut # (Auto) 10.54 H (1.4-6.5) K/uL Lymph # (Auto) 1.81 (1.2-3.4) K/uL Sumner # (Auto) 0.53 (0.24-0.82) K/uL Eos # (Auto) 0.00 (0-0.50) K/uL Baso # (Auto) 0.04 (0-0.2) K/uL Immature Gran # (Auto) 0.03 H (0.00-0.02) K/uL Sodium 137 (136-145) mmol/L Potassium 3.9 (3.5-5.1) mmol/L Chloride 104 (98-107) mmol/L Carbon Dioxide 23 (21-32) mmol/L Anion Gap 10 (3-11) BUN 12 (6-23) mg/dl Creatinine 0.77 (0.6-1.2) mg/dl Est Cr Clr Drug Dosing Not Reportable Est GFR ( Amer) 107.3 ml/min Est GFR (Non-Af Amer) 92.6 ml/min BUN/Creatinine Ratio 15.6 (10-20) Glucose 130 H (70-99(Fasting)) mg/dl Calcium 9.3 (8.5-10.1) mg/dl Total Bilirubin 0.5 (0.2-1.0) mg/dl AST 29 (13-39) U/L ALT 28 (7-52) U/L Alkaline Phosphatase 59 (34-104) U/L Total Protein 7.3 (6.0-8.3) gm/dl Albumin 4.3 (3.4-5.0) gm/dl Globulin 3.0 (2.5-4.0) gm/dl Albumin/Globulin Ratio 1.4 (0.9-2) Lipase 9 L (11-82) U/L HCG, Qual Negative (Negative) Urine Color Urine Appearance (Clear) Urine pH (4.5-7.5) Ur Specific [place] (1.000-1.030) Urine Protein (Negative) Urine Glucose (UA) (Negative) Urine Ketones (Negative) Urine Blood (Negative) Urine Nitrite (Negative) Urine Bilirubin (Negative) Urine Urobilinogen (Negative) Ur Leukocyte Esterase (Negative) Urine WBC (Auto) (0-5) /hpf Urine RBC (Auto) (0-4) /hpf U Hyaline Cast (Auto) (0-5) /lpf U Epithel Cells (Auto) (0-5) /lpf Urine Bacteria (Auto) (Negative) 09/25/22 Range/Units 12:13 WBC (4.8-10.8) K/ul RBC (3.93-5.22) M/uL Hgb (12.0-16.0) g/dl Hct (34.1-44.9) % MCV (80.0-100.0) fL MCH (25.0-34.0) pg MCHC (32.0-36.0) g/dL RDW Std Deviation (36.4-46.3) fL RDW Coeff of Cynthia (11.5-14.5) % Plt Count (130-400) K/uL MPV (9.4-12.3) fL Immature Gran % (Auto) % Neut % (Auto) % Lymph % (Auto) % Sumner % (Auto) % Eos % (Auto) % Baso % (Auto) % Neut # (Auto) (1.4-6.5) K/uL Lymph # (Auto) (1.2-3.4) K/uL Sumner # (Auto) (0.24-0.82) K/uL Eos # (Auto) (0-0.50) K/uL Baso # (Auto) (0-0.2) K/uL Immature Gran # (Auto) (0.00-0.02) K/uL Sodium (136-145) mmol/L Potassium (3.5-5.1) mmol/L Chloride (98-107) mmol/L Carbon Dioxide (21-32) mmol/L Anion Gap (3-11) BUN (6-23) mg/dl Creatinine (0.6-1.2) mg/dl Est Cr Clr Drug Dosing Est GFR ( Amer) ml/min Est GFR (Non-Af Amer) ml/min BUN/Creatinine Ratio (10-20) Glucose (70-99(Fasting)) mg/dl Calcium (8.5-10.1) mg/dl Total Bilirubin (0.2-1.0) mg/dl AST (13-39) U/L ALT (7-52) U/L Alkaline Phosphatase (34-104) U/L Total Protein (6.0-8.3) gm/dl Albumin (3.4-5.0) gm/dl Globulin (2.5-4.0) gm/dl Albumin/Globulin Ratio (0.9-2) Lipase (11-82) U/L HCG, Qual (Negative) Urine Color Dark Yellow Urine Appearance Clear (Clear) Urine pH 7.5 (4.5-7.5) Ur Specific [place] 1.029 (1.000-1.030) Urine Protein Trace H (Negative) Urine Glucose (UA) Negative (Negative) Urine Ketones Trace H (Negative) Urine Blood Negative (Negative) Urine Nitrite Negative (Negative) Urine Bilirubin Negative (Negative) Urine Urobilinogen Negative (Negative) Ur Leukocyte Esterase Negative (Negative) Urine WBC (Auto) 1-5 (0-5) /hpf Urine RBC (Auto) 10-30 H (0-4) /hpf U Hyaline Cast (Auto) 1-5 (0-5) /lpf U Epithel Cells (Auto) >30 H (0-5) /lpf Urine Bacteria (Auto) 1+ H (Negative) Administered Medications Hydromorphone HCl (Hydromorphone Inj 0.5 Mg/0.5 Ml Syr) 0.5 mg IV Q15M PRN PRN Reason: Pain Stop: 10/09/22 10:57 Last Admin: 09/25/22 13:53 Dose: 0.5 mg Documented By: Admin: 09/25/22 11:13 Dose: 0.5 mg Documented By: QGV Sodium Chloride (Nss 1000ml) 1,000 mls @ 125 mls/hr IV .Q8H STA Stop: 09/25/22 22:57 Last Admin: 09/25/22 15:39 Dose: 125 mls/hr Documented By: QGV Discontinued Medications Diphenhydramine HCl (Diphenhydramine 50 Mg/Ml Vial) 12.5 mg IV NOW ONE Stop: 09/25/22 14:58 Last Admin: 09/25/22 15:18 Dose: 12.5 mg Documented By: QGV Sodium Chloride (Nss) 500 mls @ 999 mls/hr IV .Q31M STA Stop: 09/25/22 10:34 Last Infusion: 09/25/22 11:20 Dose: 0 mls/hr Documented By: Admin: 09/25/22 10:20 Dose: 999 mls/hr Documented By: HNB Sodium Chloride (Nss 1000ml) 1,000 mls @ 999 mls/hr IV .Q1H1M ONE Stop: 09/25/22 11:58 Last Infusion: 09/25/22 12:16 Dose: 0 mls/hr Documented By: Admin: 09/25/22 11:13 Dose: 999 mls/hr Documented By: QGV Ampicillin Sodium/Sulbactam Sodium 3,000 mg/ Sodium Chloride 108 mls @ 200 mls/hr IV NOW STA; Protocol Stop: 09/25/22 14:57 Last Admin: 09/25/22 14:42 Dose: 200 mls/hr Documented By: QGV Ioversol (Optiray 350 100ml) 86 ml IV ONCE ONE Stop: 09/25/22 13:26 Last Admin: 09/25/22 13:25 Dose: 86 ml Documented By: KSF Ketorolac Tromethamine (Ketorolac Tromethamine 15 Mg/Ml Vial) 10 mg IV NOW ONE Stop: 09/25/22 10:59 Last Admin: 09/25/22 11:13 Dose: 10 mg Documented By: QGV Metoclopramide HCl (Metoclopramide Hcl Inj 5 Mg/Ml 2 Ml Vial) 5 mg IV ONE ONE Stop: 09/25/22 14:58 Last Admin: 09/25/22 15:18 Dose: 5 mg Documented By: QGV Ondansetron HCl (Ondansetron Inj 2 Mg/Ml 2 Ml Vial) Confirm Administered Dose 4 mg .ROUTE .STK-MED ONE Stop: 09/25/22 10:16 Last Admin: 09/25/22 10:21 Dose: 4 mg Documented By: HNSyeda Ondansetron HCl (Ondansetron Inj 2 Mg/Ml 2 Ml Vial) 4 mg IV NOW STA Stop: 09/25/22 10:59 Last Admin: 09/25/22 11:13 Dose: 4 mg Documented By: QGV Ondansetron HCl (Ondansetron Inj 2 Mg/Ml 2 Ml Vial) 4 mg IV NOW STA Stop: 09/25/22 14:26 Last Admin: 09/25/22 14:41 Dose: 4 mg Documented By: QGV Imaging Data Radiologist's Impression: Abdomen/Pelvis CT 09/25/22 11:02 CT OF THE ABDOMEN AND PELVIS WITH CONTRAST CLINICAL HISTORY: increased RLQ pain, WBC. CT yesterday neg, iv only COMPARISON STUDY: CT of the abdomen and pelvis and pelvic ultrasound September 24, 2022. TECHNIQUE: Following IV administration of 86 mL of Optiray, axial images of the abdomen and pelvis were obtained from the lung bases to the proximal femurs. Images were reviewed in the axial, sagittal, and coronal planes. IV contrast was administered without complication. Automated exposure control was utilized for the study. A dose lowering technique was utilized adhering to the principles of ALARA. Oral contrast was administered. CT DOSE: 557.68 mGy.cm FINDINGS: Lung bases are unremarkable. No pneumatosis, free air or portal venous gas is present. There is no biliary ductal dilatation status post cholecystectomy. The spleen, adrenal glands and pancreas are unremarkable. There is no peripancreatic stranding. There is no hydronephrosis. Subcentimeter right renal lesion is too small to characterize but is probably benign. There is no hydronephrosis. Major vasculature is patent. The caliber and wall thickness of small and large bowel are normal. Colonic diverticulosis is noted without evidence for acute diverticulitis. The appendix is diminutive. There is no evidence for acute appendicitis. Low-attenuation left adnexal lesions measure up to 4 cm. These are similar to prior CT and ultrasound. IMPRESSION: 1. No acute process within the abdomen or pelvis. 2. No bowel obstruction. Normal appendix. No bowel wall thickening. 3. Colonic diverticulosis without evidence for acute diverticulitis. 4. Two low-attenuation left adnexal lesions which likely reflect hemorrhagic cysts when correlating with ultrasound September 24, 2022. A follow-up pelvic ultrasound in 2 months to ensure resolution is recommended. ACT 112: Negative or not required by law. Electronically signed by: Kenrick Roe M.D. 09/25/2022 2:11 PM Discharge Plan Visit Data Chief Complaint: Abdominal Pain Stated Complaint: ABD PAIN, THROWNG UP ED Provider: Tesfaye Branch Discharge Problem: Right lower quadrant abdominal pain, Nausea & vomiting, Leukocytosis, Complex cyst of left ovary Forms Stand Alone Forms: [facility] Prescriptions Prescriptions: No Action montelukast 10 mg tablet 10 mg PO DAILY Qty: 90 3RF pantoprazole 40 mg tablet,delayed release (DR/EC) 40 mg PO QAM Qty: 90 1RF multivitamin Tablet 1 tab PO QDL oxycodone 5 mg tablet 5 mg PO Q6H PRN (Reason: pain) Qty: 10 0RF Rx Instructions: For initial treatment Referrals Referrals: Russel Enrique CRNP [Primary Care Provider] -
[2022-09-25] MEDS ORDERED: METOCLOPRAMIDE HCL INJ 5 MG/ML 2 ML VIAL IV ONE (14:57)
[2022-09-25] MEDS ORDERED: diphenhydrAMINE 50 MG/ML VIAL IV ONE (14:57)
[2022-09-25] MEDS ORDERED: SODIUM CHLORIDE 0.9% 1000ML 1,000 ML IV STA (14:58)
[2022-09-25 15:08] LABS: Pregnancy Test, Serum Negative (Negative)
[2022-09-25 15:32] LABS: Appearance Urine Clear (Clear); Bacteria Urine Automated 1+ (Negative); Bilirubin Urine Negative (Negative); Blood Urine Negative (Negative); Color Urine Dark Yellow; Epithelial Cell Urine Auto >30 /lpf (0-5); Glucose Urine UA Negative (Negative); Ketones Urine Trace (Negative); Leukocyte Esterase Urine Negative (Negative); Nitrite Urine Negative (Negative); Specific Gravity Urine 1.029 (1.000-1.030); Urobilinogen Urine Negative (Negative); pH Urine 7.5 (4.5-7.5)
[2022-09-25 15:35] LABS: Protein Urine Trace (Negative)
--- NOTE | 2022-09-25 15:55 | Surgery Consultation ---
Date of Consultation September 25, 2022 Assessment & Plan (1) Abdominal pain, right lower quadrant: This is a 47y F with PMH of hysterectomy, R oophorectomy, multiple ventral hernia repairs in [id number] (most recently at [facility] with mesh put in), h/o lap bacilio, anxiety, and GERD who presents to the [facility] ED on 09/25/22 with complaints of abdominal pain and nausea/vomiting. She underwent a CT a/p both yesterday and today that revealed no acute intraabdominal pathology. She does have some colonic diverticulosis. Pelvic US yesterday shows a hemorrhagic left ovarian cyst. She currently rates her pain a 5/10 which is improved from earlier. On exam patient's abdomen is soft, non distended, with tenderness el icited in the RLQ. Not an acute abdomen warranting surgical intervention at this time given lack of etiology of pain. No evidence of appendicitis via CT imaging. WBC mildly elevated at 12. Vitals are stable. Hospitalist are admitting for observation, pain and nausea control, and further workup. We will follow along for now, but no plans for intervention at this time. (2) Nausea & vomiting: Supervising Physician Co-Signing Physician Notes Dr. Knowles with no acute findings on her CAT scan She complains of pain in the right lower quadrant-her abdomen is flat and soft she has no significant peritoneal irritation She may have some discomfort to very deep palpation but soda most people Proceed with nonoperative intervention-no indication for acute surgical intervention History of Present Illness History of Present Illness This is a 47y F with PMH of hysterectomy, R oophorectomy, multiple ventral hernia repairs in [id number] (most recently at [facility] with mesh put in), h/o lap bacilio, anxiety, and GERD who presents to the [facility] ED on 09/25/22 with complaints of abdominal pain and nausea/vomiting. Of significance the patient was evaluated in the ER yesterday for pain that started on Friday and acutely worsened. In the ER a CT a/p was obtained that revealed no acute process and a pelvic US revealed findings of a hemorrhagic left ovarian cyst. Labs stable and she was sent home on a course of pain meds. Unfortunately her pain worsened again in severity rating it a 10/10, mostly located in the RLQ, associated with nausea and multiple bouts of emesis. Repeat CT a/p obtained with PO and IV contrast which showed "no acute process within the abdomen or pelvis. No bowel obstruction. Normal appendix. No bowel wall thickening. Colonic diverticulosis without evidence for acute diverticulitis." Patient denies any fevers, CP/SOB. She has chills, n/v. Last BM was this AM, but has been constipated. Last colonoscopy ~2 years ago without issues per patient. Allergies Allergy/AdvReac Type Severity Reaction Status Date / Time No Known Allergies Allergy Verified 09/25/22 15:40 Home Medications Medication Instructions Recorded Confirmed Type multivitamin 1 tab PO QDL 11/14/20 09/25/22 History montelukast 10 mg tablet 10 mg PO DAILY #90 tabs 02/01/22 09/25/22 Rx pantoprazole 40 mg tablet,delayed 40 mg PO QAM #90 tabs 05/27/22 09/25/22 Rx release oxycodone 5 mg tablet 5 mg PO Q6H PRN pain #10 tabs 09/24/22 09/25/22 Rx Patient History Medical History Abnormal mammogram of left breast GERD (gastroesophageal reflux disease) History of pulmonary embolism after travel (3 years ago)- previous AC Migraine Palpitations h/o (was previously treated with BB but no longer taking) -- follows with Dr. Lackey Pleural effusion, left (~06/26/22) Ventral hernia Surgical History H/O lithotripsy ESWL 2017 History of cholecystectomy History of colonoscopy History of D&C History of esophagogastroduodenoscopy (EGD) History of hysterectomy with unilateral oophorectomy RIGHT OOPHORECTOMY History of tooth extraction Nausea and vomiting after administration of anesthetic agent S/P cystoscopy S/P excision of lipoma S/P hernia surgery 10/2020 and 04/2021 S/P repair of ventral hernia x 2. Most recent 06/13/[address] [facility] [address] Agarwal Family History Father Family history of diabetes mellitus Myocardial infarction Mother Family history of diabetes mellitus Hypertension Other No family history of adverse response to anesthesia Denies family history of Ovarian cancer Prostate cancer Breast cancer Colorectal cancer Social History Smoking Status: Never smoker Second Hand Exposure: No; Hx Alcohol Use: No Hx Substance Use: No Preferred Language: Luxembourgish Communication Ability: Effective Visual Impairment: No Limitations Hearing Ability: Normal Production Assembler Required: No Beliefs That Will Affect Care: None marital status: Current Living Situation: Spouse current occupational status: employed 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 Feels Safe at Home: Yes Childhood Exposure to Second-Hand Smoke: No Dental Care, Regularly: Yes Physical Activity Frequency: 1-2 Times per Week Seatbelt Use: always Sunscreen Use: Yes Assistive Devices: Contacts Review of Systems Constitutional: + chills; no fever Respiratory: no dyspnea Cardiovascular: no chest pain Gastrointestinal: + abdominal pain (RLQ), + bloating, + nausea, + vomiting and + constipation Genitourinary: + urinary frequency Physical Exam Physical Exam: awake/alert, no distress Respiratory: normal respiratory effort Gastrointestinal (Abdomen): Inspection/Auscultation: + abdominal surgical scar (midline and laparoscopic); abdomen not distended Percussion/Palpation: + abdomen tender (ttp rlq) and abdomen soft Results & Data ([facility]) Vital Signs (Past 12 Hours) Vital Signs Temp Pulse Pulse Resp BP Pulse Ox O2 Del Method 09/25/22 13:55 96 H 20 136/101 H 99 Room Air 09/25/22 10:06 107 H 21 98 09/25/22 09:51 36.8 C 108 H 18 97 Room Air Diagnostic Findings CT OF THE ABDOMEN AND PELVIS WITH CONTRAST CLINICAL HISTORY: increased RLQ pain, WBC. CT yesterday neg, iv only COMPARISON STUDY: CT of the abdomen and pelvis and pelvic ultrasound September 24, 2022. TECHNIQUE: Following IV administration of 86 mL of Optiray, axial images of the abdomen and pelvis were obtained from the lung bases to the proximal femurs. Images were reviewed in the axial, sagittal, and coronal planes. IV contrast was administered without complication. Automated exposure control was utilized for the study. A dose lowering technique was utilized adhering to the principles of ALARA. Oral contrast was administered. CT DOSE: 557.68 mGy.cm FINDINGS: Lung bases are unremarkable. No pneumatosis, free air or portal venous gas is present. There is no biliary ductal dilatation status post cholecystectomy. The spleen, adrenal glands and pancreas are unremarkable. There is no peripancreatic stranding. There is no hydronephrosis. Subcentimeter right renal lesion is too small to characterize but is probably benign. There is no hydronephrosis. Major vasculature is patent. The caliber and wall thickness of small and large bowel are normal. Colonic diverticulosis is noted without evidence for acute diverticulitis. The appendix is diminutive. There is no evidence for acute appendicitis. Low-attenuation left adnexal lesions measure up to 4 cm. These are similar to prior CT and ultrasound. IMPRESSION: 1. No acute process within the abdomen or pelvis. 2. No bowel obstruction. Normal appendix. No bowel wall thickening. 3. Colonic diverticulosis without evidence for acute diverticulitis. 4. Two low-attenuation left adnexal lesions which likely reflect hemorrhagic cysts when correlating with ultrasound September 24, 2022. A follow-up pelvic ultrasound in 2 months to ensure resolution is recommended. ACT 112: Negative or not required by law. Electronically signed by: Kenrick Roe M.D. 09/25/2022 2:11 PM PG Care Time/CCT Total # of Minutes Spent Total Time Spent with Patient: Total time spent is greater than 50% in coordination of care (as documented) at patient's floor/unit and/or counseling patient: Coding Level of Care Code 83217 Inpt Consult Level 2 Diagnoses Abdominal pain, right lower quadrant R10.31 Nausea & vomiting R11.2
[2022-09-25] MEDS ORDERED: PROMETHAZINE HCL 12.5 MG in SODIUM CHLORIDE 0.9% 50 ML IV PRN (17:13)
[2022-09-25] MEDS ORDERED: ACETAMINOPHEN 1,000 MG/100 ML VIAL IV PRN (17:13)
[2022-09-25] MEDS ORDERED: ONDANSETRON INJ 2 MG/ML 2 ML VIAL IV PRN (17:13)
[2022-09-25] MEDS ORDERED: FAMOTIDINE 20 MG in SYRINGE 3 ML IV SCH (17:15)
--- NOTE | 2022-09-25 17:15 | History & Physical Report ---
Date of Service September 25, 2022 Assessment & Plan (1) Abdominal pain, right lower quadrant: Plan: with associated nausea and vomiting No definitive cause on CT A/P Will discontinue antibiotics, suspect leucocytosis due to nausea and vomiting rather than acute infection. CRP/ESR and procalcitonin also negative Discussed with Dr Shanks to review CT given 10-30 RBCs in UA - not suspected to be a urological cause Rarer causes would include familial Mediterranean fever although no fever today (consider genetic testing if continued episodes or fever), acute intermittent porphyria - will send a spot urine porphobilinogen She does have a history of pulmonary emboli although lactate previously normal Appears to be too deep and localized for musculoskeletal pain Consult surgery to examine as she has very localized tenderness Main treatment will be serial abdominal exams, bowel rest and IV fluids. May advance to clear liquids tonight if patient feels she can tolerate this. Use acetaminophen and Toradol for pain relief. Would avoid further opiates given lack of explanation of the pain. Ondansetron first line and Phenergan 2nd line for nausea (2) History of pulmonary embolism: Plan: Noted history of this. Lactate previously normal. Low suspicion of ischemic colitis given x2 normal CT scans at this time. (3) GERD (gastroesophageal reflux disease): Plan: IV famotidine 20mg daily Admission and Anticipated Discharge Date Admission Date: September 25, 2022 History of Present Illness Chief Complaint: Abdominal pain Primary Care Provider: GRECIA Delgado Danna Huang is a 47 year old female who presents to the ER with right- sided abdominal pain. She reports her pain occurred initially on Friday while on a car ride as the passenger. It has been slowly progressively getting worse since then. Always has been in the right lower quadrant without radiation. Associated severe nausea and vomiting. She was seen in the ER yesterday afternoon and had a CT A/P with IV contrast showing no acute process within the abdomen or pelvis. She was noted to have two left adnexal lesions on her left ovary which appeared to be most likely hemorrhagic cysts on follow up ultrasound. However this is not where she is having pain. Her pain was controlled with morphine and she was sent home with oxycodone. She returned today due to worsening pain, nausea and vomiting which has not been able to be controlled in the emergency room. Repeat CT abdomen/pelvis not with IV and oral contrast did not show any new acute pathology however due to mild leucocytosis she was given a dose of Unasyn. Given she is still unable to keep anything down in the emergency room she was referred to medicine for admission and ongoing management of nausea, vomiting and abdominal pain. She does feel constipated but did have a bowel movement today. She denies any dysphagia or odynophagia. Allergies Allergy/AdvReac Type Severity Reaction Status Date / Time No Known Allergies Allergy Verified 09/25/22 15:40 Home Medications Medication Instructions Recorded Confirmed Type multivitamin 1 tab PO QDL 11/14/20 09/25/22 History montelukast 10 mg tablet 10 mg PO DAILY #90 tabs 02/01/22 09/25/22 Rx pantoprazole 40 mg tablet,delayed 40 mg PO QAM #90 tabs 05/27/22 09/25/22 Rx release oxycodone 5 mg tablet 5 mg PO Q6H PRN pain #10 tabs 09/24/22 09/25/22 Rx Past Med/Surg History Medical History Abnormal mammogram of left breast GERD (gastroesophageal reflux disease) History of pulmonary embolism after travel (3 years ago)- previous AC Migraine Palpitations h/o (was previously treated with BB but no longer taking) -- follows with Dr. Lackey Pleural effusion, left (~06/26/22) Ventral hernia Surgical History H/O lithotripsy ESWL 2017 History of cholecystectomy History of colonoscopy History of D&C History of esophagogastroduodenoscopy (EGD) History of hysterectomy with unilateral oophorectomy RIGHT OOPHORECTOMY History of tooth extraction Nausea and vomiting after administration of anesthetic agent S/P cystoscopy S/P excision of lipoma S/P hernia surgery 10/2020 and 04/2021 S/P repair of ventral hernia x 2. Most recent 06/13/[address] [facility] [address] Agarwal Family History Father Family history of diabetes mellitus Myocardial infarction Mother Family history of diabetes mellitus Hypertension Other No family history of adverse response to anesthesia Denies family history of Ovarian cancer Prostate cancer Breast cancer Colorectal cancer Social History Smoking Status: Never smoker Second Hand Exposure: Yes; Do You Dip or Chew Tobacco: No; Hx Alcohol Use: No Hx Substance Use: No Preferred Language: Persian Communication Ability: Effective Visual Impairment: No Limitations Hearing Ability: Normal Supervisor Cell Room Required: No Beliefs That Will Affect Care: None marital status: Current Living Situation: Spouse current occupational status: employed 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 Other Information That Helps Us Care for You: No Feels Safe at Home: Yes Safety Concerns: Feels Safe At This Time Childhood Exposure to Second-Hand Smoke: No Dental Care, Regularly: Yes Physical Activity Frequency: 1-2 Times per Week Seatbelt Use: always Sunscreen Use: Yes Assistive Devices: Contacts Review of Systems Review of Systems: All systems reviewed & are unremarkable except as noted in HPI & below Physical Exam Constitutional: WD/WN, vitals as above Eyes: + anicteric sclerae; normal pupil size ENMT: external ear and nose normal, oropharynx normal Neck: trachea midline, no thyromegaly Respiratory: normal respiratory effort, lungs clear to auscultation Cardiovascular: RRR, no murmur, no edema Gastrointestinal (Abdomen): Inspection/Auscultation: abdomen normal to inspection and normal bowel sounds; abdomen not distended Percussion/Palpation: + abdomen tender (right lower quadrant localized) and abdomen soft; no guarding and abdomen not rigid Musculoskeletal: no cyanosis or clubbing, extremities motor strength 5/5 Skin: no rashes, warm and dry Neurologic: moves all extremities and awake; not confused Psychiatric: A+Ox3, euthymic affect Genitourinary: no CVA tenderness Results & Data Results & Data ([facility]) Vital Signs (Past 12 Hours) Vital Signs Temp Pulse Pulse Resp BP Pulse Ox O2 Del Method 09/25/22 16:48 94 H 20 138/84 97 Room Air 09/25/22 13:55 96 H 20 136/101 H 99 Room Air 09/25/22 10:06 107 H 21 98 09/25/22 09:51 36.8 C 108 H 18 97 Room Air Laboratory Results Abnormal lab results 09/25/22 09/25/22 09/25/22 Range/Units 10:18 10:18 12:13 WBC 12.95 H (4.8-10.8) K/ul Neut # (Auto) 10.54 H (1.4-6.5) K/uL Immature Gran # (Auto) 0.03 H (0.00-0.02) K/uL Glucose 130 H (70-99(Fasting)) mg/dl Lipase 9 L (11-82) U/L Urine Protein Trace H (Negative) Urine Ketones Trace H (Negative) Urine RBC (Auto) 10-30 H (0-4) /hpf U Epithel Cells (Auto) >30 H (0-5) /lpf Urine Bacteria (Auto) 1+ H (Negative) Diagnostic Findings CT OF THE ABDOMEN AND PELVIS WITH CONTRAST CLINICAL HISTORY: increased RLQ pain, WBC. CT yesterday neg, iv only COMPARISON STUDY: CT of the abdomen and pelvis and pelvic ultrasound September 24, 2022. TECHNIQUE: Following IV administration of 86 mL of Optiray, axial images of the abdomen and pelvis were obtained from the lung bases to the proximal femurs. Images were reviewed in the axial, sagittal, and coronal planes. IV contrast was administered without complication. Automated exposure control was utilized for the study. A dose lowering technique was utilized adhering to the principles of ALARA. Oral contrast was administered. CT DOSE: 557.68 mGy.cm FINDINGS: Lung bases are unremarkable. No pneumatosis, free air or portal venous gas is present. There is no biliary ductal dilatation status post cholecystectomy. The spleen, adrenal glands and pancreas are unremarkable. There is no peripancreatic stranding. There is no hydronephrosis. Subcentimeter right renal lesion is too small to characterize but is probably benign. There is no hydronephrosis. Major vasculature is patent. The caliber and wall thickness of small and large bowel are normal. Colonic diverticulosis is noted without evidence for acute diverticulitis. The appendix is diminutive. There is no evidence for acute appendicitis. Low-attenuation left adnexal lesions measure up to 4 cm. These are similar to prior CT and ultrasound. IMPRESSION: 1. No acute process within the abdomen or pelvis. 2. No bowel obstruction. Normal appendix. No bowel wall thickening. 3. Colonic diverticulosis without evidence for acute diverticulitis. 4. Two low-attenuation left adnexal lesions which likely reflect hemorrhagic cysts when correlating with ultrasound September 24, 2022. A follow-up pelvic ultrasound in 2 months to ensure resolution is recommended. Medications Administered ER medications given: NSS 500ml bolus Ondansetron 4mg IV Dilaudid 0.5mg x2 NS 1L bolus Toradol 10mg IV Ondansetron 4mg IV Unasyn 3g IV Metoclopramide 5mg IV NSS @ 125ml/hr Diphenhydramine 12.5mg IV Code Status & VTE Plan Code Status Full VTE Prophylaxis Plan VTE Prophylaxis will be ordered: Yes PG Care Time/CCT Total # of Minutes Spent Total Time Spent with Patient: Total time spent is greater than 50% in coordination of care (as documented) at patient's floor/unit and/or counseling patient: Coding Level of Care Code INT OBSERVATION CARE 50M LVL 2 Diagnoses Abdominal pain, right lower quadrant R10.31 History of pulmonary embolism Z86.711 GERD (gastroesophageal reflux disease) K21.9
[2022-09-25] MEDS ORDERED: FLUARIX QUADRIVALENT 0.5 ML SYR IM ONE (17:18)
[2022-09-25] MEDS: LACTATED RINGER'S 1,000 ML IV SCH (17:24)
[2022-09-25] MEDS: KETOROLAC TROMETHAMINE 15 MG/ML VIAL IV PRN (17:29)
[2022-09-26] MEDS: LACTATED RINGER'S 1,000 ML IV SCH ×3 (01:15→21:39)
[2022-09-26] MEDS: KETOROLAC TROMETHAMINE 15 MG/ML VIAL IV PRN ×3 (01:20→16:34)
--- NOTE | 2022-09-26 06:21 | Surgery Progress Note ---
Date of Service September 26, 2022 Assessment & Plan (1) Abdominal pain, right lower quadrant: Plan: Patient does not appear to require surgical intervention We will give her some clear liquids Continue supportive care Specific etiology of her pain is unknown Advance diet as tolerated Admission and Anticipated Discharge Date Admission Date: September 25, 2022 Subjective Patient is awake and alert in no distress No nausea or vomiting Says her pain is easing up Would like to try some liquids Review of Systems Review of Systems: All systems reviewed & are unremarkable except as noted in HPI & below Physical Exam Physical Exam: Abdomen is soft minimal tenderness Constitutional: well developed and well nourished; no acute distress Eyes: + anicteric sclerae Respiratory: normal respiratory effort; no respiratory distress Cardiovascular: Rate/Rhythm: regular rate Gastrointestinal (Abdomen): Percussion/Palpation: abdomen soft See above Musculoskeletal: Gait: normal gait Skin: no rashes, warm and dry Neurologic: awake Psychiatric: Orientation: alert Results & Data ([facility]) Vital Signs (Past 12 Hours) Vital Signs Temp Pulse Resp BP Pulse Ox O2 Del Method 09/25/22 20:49 36.8 C 60 18 117/75 97 Room Air PG Care Time/CCT Total # of Minutes Spent Total Time Spent with Patient: Total time spent is greater than 50% in coordination of care (as documented) at patient's floor/unit and/or counseling patient: Coding Level of Care Code 93485 Inpt Consult Level 3 Diagnoses Abdominal pain, right lower quadrant R10.31
[2022-09-26 07:46] LABS: Basophils # (auto) 0.03 K/uL (0-0.2); Basophils % (auto) 0.4 %; Eosinophils # (auto) 0.19 K/uL (0-0.50); Eosinophils % (auto) 2.5 %; Hematocrit (blood only) 35.6 % (34.1-44.9); Hemoglobin 12.5 g/dl (12.0-16.0); Immature Granulocytes # (auto) 0.01 K/uL (0.00-0.02); Immature Granulocytes % (auto) 0.1 %; Lymphocytes # (auto) 2.05 K/uL (1.2-3.4); Lymphocytes % (auto) 26.9 %; Mean Corpuscular Hemoglobin 30.9 pg (25.0-34.0); Mean Corpuscular Hgb Conc 35.1 g/dL (32.0-36.0); Mean Corpuscular Volume 87.9 fL (80.0-100.0); Mean Platelet Volume 9.9 fL (9.4-12.3); Monocytes # (auto) 0.55 K/uL (0.24-0.82); Monocytes % (auto) 7.2 %; Neutrophils # (auto) 4.79 K/uL (1.4-6.5); Neutrophils % (auto) 62.9 %; Platelet Count 233 K/uL (130-400); RDW Coefficient of Variation 12.7 % (11.5-14.5); RDW Standard Deviation 40.8 fL (36.4-46.3); Red Blood Count 4.05 M/uL (3.93-5.22); White Blood Count 7.62 K/ul (4.8-10.8)
[2022-09-26 08:32] LABS: Alanine Aminotransferase 24 U/L (7-52); Albumin Globulin Ratio 1.4 (0.9-2); Albumin Level 3.6 gm/dl (3.4-5.0); Alkaline Phosphatase 47 U/L (34-104); Anion Gap 5 (3-11); BUN Creatinine Ratio 10.3 (10-20); Bilirubin,Total 0.6 mg/dl (0.2-1.0); Blood Urea Nitrogen 7 mg/dl (6-23); Calcium 8.3 mg/dl (8.5-10.1); Carbon Dioxide 26 mmol/L (21-32); Chloride 107 mmol/L (98-107); Creatinine Clr Calc Pharmacy 94.1 ml/min; Est GFR (African American) 121.6 ml/min; Est GFR (Non-African American) 104.9 ml/min; Globulin 2.6 gm/dl (2.5-4.0); Glucose 97 mg/dl (70-99(Fasting)); Sodium 138 mmol/L (136-145); Total Protein 6.2 gm/dl (6.0-8.3)
[2022-09-26 09:26] LABS: Potassium 3.5 mmol/L (3.5-5.1)
[2022-09-26] MEDS: MoRPHine SULFATE 2 MG/ML CARP IV PRN ×4 (10:08→21:43)
[2022-09-26] MEDS: FAMOTIDINE 20 MG in SYRINGE 3 ML IV SCH ×2 (10:22→21:01)
--- NOTE | 2022-09-26 14:19 | Hospitalist Progress Note ---
Date of Service September 26, 2022 Assessment & Plan (1) Abdominal pain, right lower quadrant: Plan: No surgical pathology seen on [address] scans. This appears to be a rather painful viral gastroenteritis. Appreciate surgery consultations. Clear liquids for now and advance as tolerated. Intravenous morphine ordered for pain control measures. Lipase is normal and procalcitonin is also normal. Conservative management unless things change (2) History of pulmonary embolism: Plan: Noted history of this. ow suspicion of ischemic colitis given x2 normal CT scans and relatively young age (3) GERD (gastroesophageal reflux disease): Plan: IV famotidine (4) Gastroenteritis: Plan: Suspect viral gastroenteritis as etiology of right lower quadrant pain. No definite surgical need seen on CT scans or per surgery consultation. We will treat conservatively at this point Plan Anticipate eventual discharge to home once symptoms beck Admission and Anticipated Discharge Date Admission Date: September 25, 2022 Subjective Alert and oriented. is at the bedside. Appreciate surgery consultation and recommendations. She appears to have a painful viral gastroenteritis. No evidence of acute intra-abdominal pathology. We will continue IV fluids at a lower rate for now and use intravenous morphine as needed for pain. Serial lab studies ordered Review of Systems Review of Systems: Constitutional-no fever or chills ENT-no blurred vision, no double vision, no epistaxis, no sore throat Respiratory-no cough, no wheezing, no shortness of breath Cardiac-no palpitations, no chest pain, no syncope GI-nausea, vomiting, diarrhea, and right lower quadrant pain. No melena, no hem atochezia -no urinary retention, no urinary incontinence, no dysuria, no hematuria Musculoskeletal-no joint pain, no muscle tenderness Skin-no bruising, no rashes, no pruritus Neuro-no isolated weakness, no paresthesia, no weakness Psych-no depression, no anxiety Physical Exam Physical Exam: General-alert and oriented x3, no fevers, no chills HEENT-head atraumatic and normocephalic, pupils equal and reactive to light, extraocular muscles intact Neck-no lymphadenopathy or thyromegaly, trachea midline Chest-clear to auscultation percussion. No rales wheezing or rhonchi Cardiac-regular rate and rhythm, normal S1 and S2, no murmurs Abdomen-tender right lower quadrant area. No rebound or guarding. No masses. Bowel sounds are active. Extremities-no cyanosis, clubbing, or edema Neuro-cranial nerves II through XII intact, motor and sensory function within normal limits, strength symmetrical , no focal deficits Psych-normal affect, normal mood Results & Data Results & Data ([facility]) Vital Signs (Past 12 Hours) Vital Signs Temp Pulse Resp BP O2 Del Method 09/26/22 06:56 36.7 C 82 16 133/84 Room Air Laboratory Results 09/26/22 07:11 09/26/22 08:46 PG Care Time/CCT Total # of Minutes Spent Total Time Spent with Patient: Total time spent is greater than 50% in coordination of care (as documented) at patient's floor/unit and/or counseling patient: Coding Level of Care Code 28006 Subseq Hosp Care Lvl 3 Diagnoses Abdominal pain, right lower quadrant R10.31 History of pulmonary embolism Z86.711 GERD (gastroesophageal reflux disease) K21.9 Gastroenteritis K52.9
[2022-09-26 19:44] LABS: Adenovirus F 40/41 PCR Not Detected (NotDetected); Astrovirus PCR Not Detected (NotDetected); Campylobacter PCR Not Detected (NotDetected); Cryptosporidium PCR Not Detected (NotDetected); Cyclospora cayetanensis PCR Not Detected (NotDetected); Entamoeba histolytica PCR Not Detected (NotDetected); Enteroaggregative E.coli(EAEC) Not Detected (NotDetected); Enteropathogenic E.coli (EPEC) Not Detected (NotDetected); Enterotoxigenic E.coli (ETEC) Not Detected (NotDetected); Giardia lamblia PCR Not Detected (NotDetected); Norovirus GI/GII PCR Not Detected (NotDetected); Plesiomonas shigelloides PCR Not Detected (NotDetected); Rotavirus A PCR Not Detected (NotDetected); Salmonella PCR Not Detected (NotDetected); Sapovirus PCR Not Detected (NotDetected); Shiga-like Toxin E.coli (STEC) Not Detected (NotDetected); Shigella/Enteroinvasive E.coli Not Detected (NotDetected); Vibrio cholerae PCR Not Detected (NotDetected); Vibrio species PCR Not Detected (NotDetected); Yersinia enterocolitica PCR Not Detected (NotDetected)
[2022-09-27 06:33] LABS: Basophils # (auto) 0.03 K/uL (0-0.2); Basophils % (auto) 0.4 %; Eosinophils # (auto) 0.21 K/uL (0-0.50); Eosinophils % (auto) 2.8 %; Hematocrit (blood only) 37.9 % (34.1-44.9); Hemoglobin 13.1 g/dl (12.0-16.0); Immature Granulocytes # (auto) 0.01 K/uL (0.00-0.02); Immature Granulocytes % (auto) 0.1 %; Lymphocytes # (auto) 2.27 K/uL (1.2-3.4); Lymphocytes % (auto) 30.5 %; Mean Corpuscular Hemoglobin 30.8 pg (25.0-34.0); Mean Corpuscular Hgb Conc 34.6 g/dL (32.0-36.0); Mean Corpuscular Volume 89.2 fL (80.0-100.0); Mean Platelet Volume 9.7 fL (9.4-12.3); Monocytes # (auto) 0.61 K/uL (0.24-0.82); Monocytes % (auto) 8.2 %; Neutrophils # (auto) 4.31 K/uL (1.4-6.5); Platelet Count 231 K/uL (130-400); RDW Coefficient of Variation 12.6 % (11.5-14.5); Red Blood Count 4.25 M/uL (3.93-5.22); White Blood Count 7.44 K/ul (4.8-10.8)
[2022-09-27 07:01] LABS: Albumin Globulin Ratio 1.4 (0.9-2); Albumin Level 3.9 gm/dl (3.4-5.0); BUN Creatinine Ratio 6.6 (10-20); Bilirubin,Total 0.6 mg/dl (0.2-1.0); Calcium 8.8 mg/dl (8.5-10.1); Creatinine Clr Calc Pharmacy 84.2 ml/min; Est GFR (Non-African American) 94.1 ml/min; Globulin 2.7 gm/dl (2.5-4.0); Potassium 3.3 mmol/L (3.5-5.1); Total Protein 6.6 gm/dl (6.0-8.3)
--- NOTE | 2022-09-27 08:41 | Surgery Progress Note ---
Date of Service September 27, 2022 Assessment & Plan (1) Abdominal pain, right lower quadrant: Plan: Patients pain improving. Reports pain more so on the L than R side at this point Vital signs are stable. WBC 7 No surgical needs at this point, etiology of L hemorrhagic ovarian cyst vs gastroenteritis? Okay to advance diet as tolerates We will sign off at this point, but call back with any questions/concerns Admission and Anticipated Discharge Date Admission Date: September 25, 2022 Subjective Patient's pain remains present, but improving. Now more so on the L side greater than right. Physical Exam Physical Exam: awake/alert, no distress Respiratory: normal respiratory effort Gastrointestinal (Abdomen): Percussion/Palpation: + abdomen tender (discomfort elicited now more so on the L >R) and abdomen soft Results & Data ([facility]) Vital Signs (Past 12 Hours) Vital Signs Temp Pulse Resp BP Pulse Ox O2 Del Method 09/27/22 07:17 37.2 C 72 14 128/83 95 Room Air 09/26/22 21:29 37.0 C 80 18 132/88 97 Room Air PG Care Time/CCT Total # of Minutes Spent Total Time Spent with Patient: Total time spent is greater than 50% in coordination of care (as documented) at patient's floor/unit and/or counseling patient: Coding Level of Care Code 26314 Subseq Hosp Care Lvl 1 Diagnoses Abdominal pain, right lower quadrant R10.31
[2022-09-27] MEDS: FAMOTIDINE 20 MG in SYRINGE 3 ML IV SCH (10:49)
--- NOTE | 2022-09-27 11:07 | Discharge Summary ---
Date of Service September 27, 2022 Admission HPI Per Admitting Provider Danna Huang is a 47 year old female who presents to the ER with right- sided abdominal pain. She reports her pain occurred initially on Friday while on a car ride as the passenger. It has been slowly progressively getting worse since then. Always has been in the right lower quadrant without radiation. Associated severe nausea and vomiting. She was seen in the ER yesterday afternoon and had a CT A/P with IV contrast showing no acute process within the abdomen or pelvis. She was noted to have two left adnexal lesions on her left ovary which appeared to be most likely hemorrhagic cysts on follow up ultrasou nd. However this is not where she is having pain. Her pain was controlled with morphine and she was sent home with oxycodone. She returned today due to worsening pain, nausea and vomiting which has not been able to be controlled in the emergency room. Repeat CT abdomen/pelvis not with IV and oral contrast did not show any new acute pathology however due to mild leucocytosis she was given a dose of Unasyn. Given she is still unable to keep anything down in the emergency room she was referred to medicine for admission and ongoing management of nausea, vomiting and abdominal pain. She does feel constipated but did have a bowel movement today. She denies any dysphagia or odynophagia. Principal Diagnosis suspected viral gastroenteritis causing RLQ pain Discharge Exam General-alert and oriented x3, no fevers, no chills HEENT-head atraumatic and normocephalic, pupils equal and reactive to light, extraocular muscles intact Neck-no lymphadenopathy or thyromegaly, trachea midline Chest-clear to auscultation percussion. No rales wheezing or rhonchi Cardiac-regular rate and rhythm, normal S1 and S2, no murmurs Abdomen-less tender right lower quadrant area. No rebound or guarding. No masses. Bowel sounds are active. Extremities-no cyanosis, clubbing, or edema Neuro-cranial nerves II through XII intact, motor and sensory function within normal limits, strength symmetrical , no focal deficits Psych-normal affect, normal mood Discharge Data Allergies Allergy/AdvReac Type Severity Reaction Status Date / Time No Known Allergies Allergy Verified 09/25/22 15:40 Consultations 09/25/22 14:59 ED Decision to Admit Stat 09/25/22 15:50 Consult General Surgery Routine Ordered Studies 09/25/22 11:02 CT Abd and Pelvis [CT abd pelvis oral and IV con] Stat Hospital Course (1) Abdominal pain, right lower quadrant: No surgical pathology seen on [address] scans. This appears to be a rather painful viral gastroenteritis. Appreciate surgery consultations. Diet advanced. Much improved. Home today. She doesn't believe she needs any narcotic pain meds. Lipase is normal and procalcitonin is also normal. Conservative management unless things change (2) History of pulmonary embolism: Noted history of this. ow suspicion of ischemic colitis given x2 normal CT scans and relatively young age (3) GERD (gastroesophageal reflux disease): IV famotidine while hospitalized (4) Gastroenteritis: Suspect viral gastroenteritis as etiology of right lower quadrant pain. No definite surgical need seen on CT scans or per surgery consultation. We will treat conservatively at this point Plan discharge to home today, 09/27 Total Time Total Time Spent Total Time Spent (In Minutes): 35 minutes Discharge Plan Discharge Items Patient Disposition: Home - Self-Care Reason For Visit: ABDOMINAL PAIN Discharge Diagnosis: Viral gastroenteritis, RLQ pain Activity: Resume your previous activity Non-emergency contact: Primary Care Provider Call non-emergency contact if: your symptoms worsen Follow-up/Referrals: Russel Enrique CRNP [Primary Care Provider] - Diet: Regular Addtl Attending Provider Instructions: return to ED for re-evaluation if symptoms recur Pending Studies at Discharge: No Stand-Alone Forms: My check24, Smoking Cessation Medications and DC Order Prescriptions: Continued montelukast 10 mg tablet 10 mg PO DAILY Qty: 90 3RF pantoprazole 40 mg tablet,delayed release (DR/EC) 40 mg PO QAM Qty: 90 1RF multivitamin Tablet 1 tab PO QDL oxycodone 5 mg tablet 5 mg PO Q6H PRN (Reason: pain) Qty: 10 0RF Rx Instructions: For initial treatment Discharge Orders: Discharge Order (Routine); Ordered 09/27/22 Ordered By: Feroz Hanna Admission Data Admit Date/Time: 09/25/22 15:50 Attending Provider: Feorz Hanna Admit Provider: Axel Lopez Primary Care Provider: Russel Enrique Other Providers: Axel Lopez ; Feroz Collado Coding Level of Care Code D/C DAY MANAGEMENT >30 MINS Diagnoses Abdominal pain, right lower quadrant R10.31 History of pulmonary embolism Z86.711 GERD (gastroesophageal reflux disease) K21.9 Gastroenteritis K52.9
== END 2022-09-27 13:29 | disposition home or self-care (01) ==
LOC: ED 09:26 → 3N 09:26 → SUATTDRO 15:50 → 3N 16:42